=== PATIENT | female | born 1940 | race Two or more races ===

== ENCOUNTER 2016-12-31 16:12 | Inpatient (IN) | payer OTHER ==
[~2016-12-31] VITALS: Ht 152.4 cm; Wt 54.6 kg
[~2016-12-31 16:12] MED LIST: ASPI-482 PO; AZIT500T PO; BRIM5DRO3 OP; CARV3.12 PO; CHLO25TA PO; GLIM4TAB PO; LOSA50TA6 PO; METF10002 PO; METO5TAB55 PO; OMEP20CA9 PO; PANT40TA3 PO; TIMO1DRO2 OP
[2016-12-31 16:30] VITALS: BP 170/80
--- NOTE | 2016-12-31 16:50 | NUR ---
The patient, NIDIA MCCOY, 76 y/o, F admitted by SHAN BALDWIN MD, was given written information regarding hospital policies, unit procedures and contact persons. VSS, assessment complete, Valuables were checked and documented, pt pain, no complaints
[2016-12-31] MEDS ORDERED: FERR-26 PO (17:21)
[2016-12-31] MEDS ORDERED: BRIM5DRO2 OP (17:21)
[2016-12-31] MEDS ORDERED: CA/D1TAB11 PO (17:21)
[2016-12-31] MEDS ORDERED: LUTE1CAP5 PO (17:21)
[2016-12-31] MEDS ORDERED: TRAZ-90 PO (17:37)
[2016-12-31] MEDS ORDERED: PRAV40TA2 PO (17:37)
[2016-12-31 18:01] VITALS: BP 156/76
--- NOTE | 2016-12-31 18:15 | NUR ---
Dr. Ba notified that pt was admitted, orders for labs and CT head, CT abd/pelvis, Dr. Ba will reconcile pt's home meds.
[2016-12-31 19:00] LABS: BASO % 1 % (0-3); EOS # 0.1 x10^3/uL (0.0-0.7); EOS % 1 % (0-3); HEMATOCRIT 31.1 % (36.0-47.0); LYMPH # 2.8 x10^3/uL (1.0-4.8); LYMPH % 41 % (24-48); MEAN CORPUSCULAR HEMOGLOBIN 32 pg (25-35); MEAN CORPUSCULAR HGB CONC 35 g/dL (31-37); MEAN CORPUSCULAR VOLUME 90 fL (79-100); MONO # 0.7 x10^3/uL (0.0-1.1); MONO % 10 % (0-9); NEUT # 3.3 x10^3uL (1.8-7.7); NEUT % 48 % (31-73); PLATELET COUNT 304 x10^3/uL (140-400); RED BLOOD COUNT 3.45 x10^6/uL (3.50-5.40); RED CELL DISTRIBUTION WIDTH 12.7 % (11.5-14.5); WHITE BLOOD COUNT 6.9 x10^3/uL (4.0-11.0)
[2016-12-31 19:12] LABS: ALBUMIN 3.8 g/dL (3.4-5.0); CALCIUM 9.6 mg/dL (8.5-10.1); CREATININE 1.1 mg/dL (0.6-1.0); POTASSIUM 3.8 mmol/L (3.5-5.1); TOTAL BILIRUBIN 0.4 mg/dL (0.2-1.0); TOTAL PROTEIN 7.6 g/dL (6.4-8.2)
[2016-12-31] MEDS: IV NORMAL SALINE 1,000ML 1,000 ML IV SCH ×2 (19:55→20:50)
[2016-12-31] MEDS: BRIMONIDINE 0.2% OPHTH SOLUTION 5ML BOTTLE. OU SCH (20:50)
[2016-12-31] MEDS: TIMOLOL 0.5% OPHTH SOLUTION 5ML BOTTLE. OU SCH (20:50)
[2016-12-31] MEDS: PRAVASTATIN 20 MG TABLET. PO SCH (20:50)
[2016-12-31] MEDS: METOCLOPRAMIDE 5 MG TABLET PO SCH (20:50)
[2016-12-31] MEDS: traZODone 100 MG TABLET. PO SCH (20:51)
[2016-12-31] MEDS: CARVEDILOL 3.125 MG TABLET PO SCH (20:51)
[2016-12-31] MEDS: LOSARTAN 50 MG TABLET. PO SCH (20:51)
[2016-12-31] MEDS: GLIMEPIRIDE 4 MG TABLET PO SCH (20:51)
[2016-12-31] MEDS ORDERED: NON FORMULARY ITEM (Brimonidine Tartrate/Timolol (Combigan Eye Drops) 5 ML) OP SCH (21:00)
--- NOTE | 2016-12-31 21:38 | RAD ---
PROCEDURE CT HEAD HISTORY NAUSEA/VOMTING/HEADACHE
TECHNIQUE AXIAL NONCONTRAST IMAGING THROUGH THE HEAD WAS PERFORMED. COMPARISON NO PRIOR IMAGES ARE AVAILABLE FOR COMPARISON PURPOSES. FINDINGS NO ACUTE OR SIGNIFICANT CALVARIAL FINDING IS SEEN. THE VISUALIZED PARANASAL SINUSES APPEAR UNREMARKABLE. THERE IS NO SUBDURAL OR EPIDURAL HEMATOMA. THERE IS SOME UNDERLYING ATROPHY. THERE ARE LUCENCIES IN THE DEEP WHITE MATTER BILATERALLY LIKELY REFLECTING MICROVASCULAR DISEASE. NO HEMORRHAGE IS SEEN. THERE IS NO MIDLINE SHIFT. A DEFINITE ACUTE FINDING IS NOT APPARENT. THERE ARE APPARENT POSTOPERATIVE CHANGES ASSOCIATED WITH THE LEFT SIDE. CLINICAL CORRELATION ADVISED IMPRESSION CHRONIC CHANGES. NO DEFINITE ACUTE FINDINGS SEEN. THERE IS EVIDENCE FOR MICROVASCULAR DISEASE. IF ADDITIONAL IMAGING EVALUATION IS WARRANTED AN MRI EXAMINATION MAY BE USEFUL Electronically signed by: Raffaele Villagomez (December 31, 2016 21:37:15)
[2016-12-31 22:57] VITALS: BP 114/61
[2016-12-31 23:11] LABS: BILIRUBIN,URINE NEG (NEG); CLARITY,URINE CLEAR; COLOR,URINE YELLOW; GLUCOSE,URINE NEG (NEG); NITRITE,URINE NEG (NEG); UROBILINOGEN,URINE 0.2 mg/dL (0.2 mg/dL)
[2016-12-31 23:12] LABS: BACTERIA,URINE FEW /HPF (0-FEW); RBC,URINE 0 /HPF (0-2); SQUAMOUS EPITHELIAL CELL,UR FEW /LPF
[2017-01-01] MEDS ORDERED: PNEUMOCOCCAL VAX SCREEN. MC PRN (04:00)
[2017-01-01 05:06] VITALS: BP 117/61
--- NOTE | 2017-01-01 07:44 | RAD ---
Indication: Shortness of air. Time of exam 2119 hours. Correlation is made with prior chest from 03/15/2014. FINDINGS: The heart size is normal. The lungs are clear. No pleural effusion or pneumothorax is identified. The pulmonary vascularity is normal. IMPRESSION: No acute abnormality detected.
[2017-01-01] MEDS: MULTIVITAMIN I-VITE TABLET. PO SCH (08:32)
[2017-01-01] MEDS: CHLORTHALIDONE 25 MG TABLET PO SCH (08:38)
[2017-01-01] MEDS: CARVEDILOL 3.125 MG TABLET PO SCH ×2 (08:38→20:02)
[2017-01-01] MEDS: ASPIRIN ENTERIC COATED 81 MG TABLET.DR. PO SCH (08:38)
[2017-01-01] MEDS: PANTOPRAZOLE 40 MG TABLET. PO SCH (08:38)
[2017-01-01] MEDS: GLIMEPIRIDE 4 MG TABLET PO SCH ×2 (08:38→20:01)
[2017-01-01] MEDS: METOCLOPRAMIDE 5 MG TABLET PO SCH ×4 (08:38→20:02)
[2017-01-01] MEDS: LOSARTAN 50 MG TABLET. PO SCH ×2 (08:38→20:02)
[2017-01-01] MEDS: FERROUS SULFATE 325 MG TABLET PO SCH (08:38)
[2017-01-01] MEDS: BRIMONIDINE 0.2% OPHTH SOLUTION 5ML BOTTLE. OU SCH ×2 (08:39→20:01)
[2017-01-01] MEDS: TIMOLOL 0.5% OPHTH SOLUTION 5ML BOTTLE. OU SCH ×2 (08:39→20:01)
[2017-01-01] MEDS ORDERED: PNEUMOC CONJ VACC 23-VALENT 0.5 ML VIAL. VAX IM ONE (09:00)
[2017-01-01] MEDS ORDERED: IOHEXOL 300 MG/ML 75 ML VIAL. IV ONE (10:00)
[2017-01-01] MEDS ORDERED: IOHEXOL 240 MG/ML 50ML VIAL. PO ONE (10:00)
[2017-01-01] MEDS ORDERED: CONTRAST GIVEN MC PRN (10:15)
[2017-01-01 10:34] VITALS: BP 111/52
--- NOTE | 2017-01-01 12:01 | RAD ---
Exam performed: CT abdomen pelvis with contrast. History: Nausea, vomiting and diarrhea more than 2 hours. Date of service: 01/01/17. Comparison: None available Technique: Contiguous helical acquisitions are obtained through the chest reveal intravenous administration of 75 cc of Omnipaque 300. Sagittal and coronal reformatted images are obtained and reviewed. Findings: Linear left basilar atelectasis. Right lung base is clear. Visualized heart is normal. Mild hepatic steatosis. Cholecystectomy. Wall thickening of the stomach may be related to decompressed status. The spleen and pancreas appear normal. Both adrenal glands and bilateral kidneys are normal in size with symmetric excretion of contrast via both kidneys. There is no hydronephrosis or nephrolithiasis. Aorta demonstrates mild atheromatous calcification. No retroperitoneal or mesenteric lymphadenopathy. Small and large bowel loops are nondilated and unremarkable. Normal appendix. Apparent wall thickening of the medial aspect of the cecum and probably distal portion of the ileum is seen, best seen on axial image 86, series 2 and coronal image 47, series 6. Urinary bladder is partially decompressed. Hysterectomy. No adnexal masses seen. No free or focal fluid collections or pelvic lymphadenopathy seen. Postoperative changes of posterior spinal fusion involving bilateral. Impression: 1. Apparent wall thickening of the cecum and probably distal ileum. Findings may be related to enterocolitis, infectious or inflammatory etiology. Mass involving the medial wall of cecum cannot be excluded. Evaluation with colonoscopy findings may be of additional benefit. 2. Diffuse hepatic steatosis. PQRS Compliance Statement: One or more of the following individualized dose reduction techniques were utilized for this examination: 1. Automated exposure control 2. Adjustment of the mA and/or kV according to patient size 3. Use of iterative reconstruction technique
--- NOTE | 2017-01-01 12:31 | EKG ---
[address] [address] Test Date: 2017-01-01 Test Time: 10:19:34 Pat Name: NIDIA MCCOY Department: Room: 123 A Gender: F Anglesmith: : 1940 Requested By: SHAN BALDWIN Order Number: [id number] Reading MD: Maximiliano Begum Measurements Intervals [place] Rate: 67 P: 51 MN: 162 QRS: 36 QRSD: 88 T: 68 QT: 414 QTc: 440 Interpretive Statements SINUS ARRHYTHMIA Electronically Signed On 01-06-2017 9:18:00 CDT by Maximiliano Begum
[2017-01-01] MEDS: IV NORMAL SALINE 1,000ML 1,000 ML IV SCH (14:48)
[2017-01-01 14:57] LABS: BASO % 1 % (0-3); EOS % 0 % (0-3); HEMATOCRIT 28.4 % (36.0-47.0); HEMOGLOBIN 10.1 g/dL (12.0-15.5); LYMPH # 1.8 x10^3/uL (1.0-4.8); LYMPH % 31 % (24-48); MEAN CORPUSCULAR HEMOGLOBIN 32 pg (25-35); MEAN CORPUSCULAR HGB CONC 36 g/dL (31-37); MEAN CORPUSCULAR VOLUME 90 fL (79-100); MONO # 0.6 x10^3/uL (0.0-1.1); MONO % 10 % (0-9); NEUT # 3.5 x10^3uL (1.8-7.7); NEUT % 59 % (31-73); PLATELET COUNT 269 x10^3/uL (140-400); RED BLOOD COUNT 3.16 x10^6/uL (3.50-5.40); RED CELL DISTRIBUTION WIDTH 12.7 % (11.5-14.5)
[2017-01-01 16:00] LABS: BILIRUBIN,URINE NEG (NEG); CLARITY,URINE CLEAR; COLOR,URINE STRAW; GLUCOSE,URINE 100 mg/dL (NEG); NITRITE,URINE NEG (NEG); UROBILINOGEN,URINE 0.2 mg/dL (0.2 mg/dL)
[2017-01-01 16:18] LABS: RBC,URINE 0 /HPF (0-2)
[2017-01-01 16:19] LABS: BACTERIA,URINE 0 /HPF (0-FEW)
[2017-01-01 16:23] VITALS: BP 129/69
[2017-01-01] MEDS: traZODone 100 MG TABLET. PO SCH (20:02)
[2017-01-01 20:03] VITALS: BP 183/70
[2017-01-01] MEDS: PRAVASTATIN 20 MG TABLET. PO SCH (20:03)
[2017-01-01 23:20] VITALS: BP 100/58
[2017-01-02 04:13] LABS: HEMOGLOBIN A1C 5.9 % (4.8-5.6)
[2017-01-02] MEDS: IV NORMAL SALINE 1,000ML 1,000 ML IV SCH ×2 (05:05→20:27)
[2017-01-02 05:26] VITALS: BP 119/66
[2017-01-02 06:44] LABS: CALCIUM 8.8 mg/dL (8.5-10.1); CREATININE 0.7 mg/dL (0.6-1.0); GFR 80.9; POTASSIUM 3.9 mmol/L (3.5-5.1)
[2017-01-02 07:22] LABS: BASO % 1 % (0-3); EOS # 0.1 x10^3/uL (0.0-0.7); EOS % 1 % (0-3); HEMATOCRIT 27.8 % (36.0-47.0); LYMPH # 2.2 x10^3/uL (1.0-4.8); LYMPH % 39 % (24-48); MEAN CORPUSCULAR HEMOGLOBIN 32 pg (25-35); MEAN CORPUSCULAR HGB CONC 36 g/dL (31-37); MEAN CORPUSCULAR VOLUME 89 fL (79-100); MONO # 0.6 x10^3/uL (0.0-1.1); MONO % 11 % (0-9); NEUT # 2.7 x10^3uL (1.8-7.7); NEUT % 49 % (31-73); PLATELET COUNT 276 x10^3/uL (140-400); RED BLOOD COUNT 3.11 x10^6/uL (3.50-5.40); RED CELL DISTRIBUTION WIDTH 12.9 % (11.5-14.5); WHITE BLOOD COUNT 5.5 x10^3/uL (4.0-11.0)
[2017-01-02] MEDS: METOCLOPRAMIDE 5 MG TABLET PO SCH ×4 (07:52→20:27)
[2017-01-02] MEDS: LOSARTAN 50 MG TABLET. PO SCH ×2 (07:52→20:27)
[2017-01-02] MEDS: CHLORTHALIDONE 25 MG TABLET PO SCH (07:52)
[2017-01-02] MEDS: PANTOPRAZOLE 40 MG TABLET. PO SCH (07:52)
[2017-01-02] MEDS: MULTIVITAMIN I-VITE TABLET. PO SCH (07:52)
[2017-01-02] MEDS: ASPIRIN ENTERIC COATED 81 MG TABLET.DR. PO SCH (07:53)
[2017-01-02] MEDS: GLIMEPIRIDE 4 MG TABLET PO SCH ×2 (07:53→20:27)
[2017-01-02] MEDS: CARVEDILOL 3.125 MG TABLET PO SCH ×2 (07:53→20:27)
[2017-01-02] MEDS: TIMOLOL 0.5% OPHTH SOLUTION 5ML BOTTLE. OU SCH ×2 (07:53→20:26)
[2017-01-02] MEDS: FERROUS SULFATE 325 MG TABLET PO SCH (07:53)
[2017-01-02] MEDS: BRIMONIDINE 0.2% OPHTH SOLUTION 5ML BOTTLE. OU SCH ×2 (07:53→20:26)
--- NOTE | 2017-01-02 09:40 | PN ---
DATE: SUBJECTIVE: A 76-year-old female with what appears to be some form of sepsis. Her scan today showed that she had a form of enterocolitis of the ileocecal area. The patient also noted to have hepatic steatosis. She does have a history of diabetes. Her creatinine was also elevated and her lactic acid was down to 3.1, her BUN was elevated at 22, sodium was low at 129. Cardiac enzymes negative. Other scan of including CT of the head because of the headache, no acute findings noted. Chest x-ray was unremarkable. PHYSICAL EXAMINATION: VITAL SIGNS: Blood pressure 110/60, respiratory rate 20, pulse 80, afebrile. The patient's daughter translated. GENERAL: Alert and oriented. LUNGS: Diminished, but clear. CARDIOVASCULAR: Stable. The patient better dehydrated. ABDOMEN: Soft, diffuse tenderness in the lower abdominal areas, right and left. No rebounding, slight guarding. NEUROLOGIC: Intact. LABORATORY DATA: The patient otherwise continued to be monitored carefully IV fluids hydration, start her on Flexeril 500 mg b.i.d., as such she did have some diarrhea. IMPRESSION: Enterocolitis, diarrhea, dehydration, sepsis, type 2 diabetes, mild renal insufficiency. Continue therapy. PLAN: As noted, get stool specimens as well. SHAN BALDWIN MD DR: MARY/perry JOB#: [id number] / [id number]
[2017-01-02 09:47] LABS: FECAL OB PT NEGATIVE (NEG)
[2017-01-02 11:18] VITALS: BP 132/72
[2017-01-02 15:13] VITALS: BP 153/66
[2017-01-02 19:31] VITALS: BP 152/65
[2017-01-02] MEDS: traZODone 100 MG TABLET. PO SCH (20:27)
[2017-01-02] MEDS: PRAVASTATIN 20 MG TABLET. PO SCH (20:28)
[2017-01-03 05:37] VITALS: BP 137/73
[2017-01-03 08:06] LABS: BASO % 1 % (0-3); EOS % 1 % (0-3); HEMOGLOBIN 10.4 g/dL (12.0-15.5); LYMPH # 2.4 x10^3/uL (1.0-4.8); LYMPH % 34 % (24-48); MEAN CORPUSCULAR HEMOGLOBIN 33 pg (25-35); MEAN CORPUSCULAR HGB CONC 37 g/dL (31-37); MEAN CORPUSCULAR VOLUME 90 fL (79-100); MONO # 0.7 x10^3/uL (0.0-1.1); MONO % 10 % (0-9); NEUT # 3.9 x10^3uL (1.8-7.7); NEUT % 55 % (31-73); PLATELET COUNT 282 x10^3/uL (140-400); RED BLOOD COUNT 3.12 x10^6/uL (3.50-5.40); RED CELL DISTRIBUTION WIDTH 13.1 % (11.5-14.5); WHITE BLOOD COUNT 7.1 x10^3/uL (4.0-11.0)
[2017-01-03 08:13] LABS: CALCIUM 8.7 mg/dL (8.5-10.1); CREATININE 0.8 mg/dL (0.6-1.0); GFR 69.4; POTASSIUM 3.8 mmol/L (3.5-5.1)
[2017-01-03] MEDS: MULTIVITAMIN I-VITE TABLET. PO SCH (08:18)
[2017-01-03] MEDS: GLIMEPIRIDE 4 MG TABLET PO SCH (08:18)
[2017-01-03] MEDS: ASPIRIN ENTERIC COATED 81 MG TABLET.DR. PO SCH (08:18)
[2017-01-03] MEDS: TIMOLOL 0.5% OPHTH SOLUTION 5ML BOTTLE. OU SCH (08:18)
[2017-01-03] MEDS: BRIMONIDINE 0.2% OPHTH SOLUTION 5ML BOTTLE. OU SCH (08:18)
[2017-01-03] MEDS: CHLORTHALIDONE 25 MG TABLET PO SCH (08:18)
[2017-01-03] MEDS: FERROUS SULFATE 325 MG TABLET PO SCH (08:18)
[2017-01-03] MEDS: LOSARTAN 50 MG TABLET. PO SCH (08:18)
[2017-01-03] MEDS: METOCLOPRAMIDE 5 MG TABLET PO SCH ×2 (08:18→11:37)
[2017-01-03] MEDS: PANTOPRAZOLE 40 MG TABLET. PO SCH (08:19)
[2017-01-03] MEDS: CARVEDILOL 3.125 MG TABLET PO SCH (08:19)
--- NOTE | 2017-01-03 09:19 | PN ---
DATE: 01/02/2017 SUBJECTIVE: A 76-year-old female came in with abdominal pain, nausea, vomiting, weakness, failure to thrive. The patient was noted on CT scan to show colitis. She has been receiving IV metronidazole, so she is feeling better. We will go ahead and start her on advancing her diet, make further evaluation on her as indicated per those results, otherwise. PHYSICAL EXAMINATION: VITAL SIGNS: The patient's blood pressure 150/60, respiratory rate 20, pulse 70, afebrile. GENERAL: The patient is alert and oriented x 3. Speech fluent, spontaneous, and appropriate. LUNGS: Diminished, but clear. CARDIOVASCULAR: Stable. ABDOMEN: Soft. There is definite tenderness, but markedly improved from where they were. EXTREMITIES: No clubbing, cyanosis or edema. IMPRESSION: Colitis, possible Clostridium difficile. We will try to get stool specimen, stool Hemoccult negative. Continue on IV metronidazole, advance diet gradually, she will end up having to see a primer inserting machine operator. SHAN BALDWIN MD DR: MARY/perry JOB#: [id number] / [id number]
[2017-01-03] MEDS ORDERED: METR500T8 PO (09:56)
[2017-01-03 10:26] VITALS: BP 126/64
--- NOTE | 2017-01-03 15:35 | NUR ---
Discharge Note: TITO MCCOY [facility] Discharge instructions and discharge home medications reviewed with Family Member and a copy given. All questions have been answered and understanding verbalized. The following instructions and handouts were given: education about Flagyl and colitis, discharge instructions Discontinued lines and drains: PICC Line intact. Patient discharged to Home or Self Care withFamily Membervia Ambulated
== END 2017-01-03 15:36 | disposition home or self-care (01) | DRG 872 ==
LOC: 1 SOUTH 16:12
PROVIDERS: ADMIT Family Medicine; ATTEND Family Medicine
DX: A41.9 Sepsis, unspecified organism (principal); E11.9 Type 2 diabetes mellitus without complications; E86.0 Dehydration; K52.9 Noninfective gastroenteritis and colitis, unspecified; K76.0 Fatty (change of) liver, not elsewhere classified; N28.9 Disorder of kidney and ureter, unspecified; R62.7 Adult failure to thrive; R55 Syncope and collapse; Z88.8 Allergy status to other drugs, medicaments and biological substances
CPT/HCPCS: 36415; 70450; 71020; 74177; 80048; 80053; 81001; 82274; 82550; 82947; 83036; 83605; 83880; 84443; 84484; 85027; 85379; 87045; 87086; 87177; 87324; 93005; J3490; J8597; J7030

== ENCOUNTER → 2017-06-19 | Day surgery (SDC) | payer OTHER ==
[~2017-06-19] MED LIST changes: +BRIM5DRO2 OP; +CA/D1TAB11 PO; +FERR-26 PO; +IV RINGERS SOLUTION,LACTATED 1,000 ML IV ONE; +LIDOCAINE 2% PF Vial for OR 5 ML VIAL. ONE; +LUTE1CAP5 PO; +METR500T8 PO; +PRAV40TA2 PO; +PROPOFOL 20 ML IV ONE; +TRAZ-90 PO
== END | disposition home or self-care (01) ==
LOC: SURG 07:28
PROVIDERS: ATTEND Internal Medicine Gastroenterology
DX: K57.30 Diverticulosis of large intestine without perforation or abscess without bleeding (principal); K64.8 Other hemorrhoids; E78.00 Pure hypercholesterolemia, unspecified; H40.9 Unspecified glaucoma; M19.91 Primary osteoarthritis, unspecified site; Z90.710 Acquired absence of both cervix and uterus; Z88.8 Allergy status to other drugs, medicaments and biological substances
CPT/HCPCS: 45378; 82947; J2704; J7120; J2001

== ENCOUNTER → 2018-07-28 | Outpatient (CLI) | payer OTHER ==
[~2018-07-28] MED LIST changes: -FERR-26 PO; +FERR325T14 PO; +IOHEXOL 240 MG/ML 50ML VIAL. ONE; +IOHEXOL 240 MG/ML 50ML VIAL. PO ONE; +IOHEXOL 300 MG/ML 75 ML VIAL. IV ONE; -IV RINGERS SOLUTION,LACTATED 1,000 ML IV ONE; -LIDOCAINE 2% PF Vial for OR 5 ML VIAL. ONE; -LOSA50TA6 PO; +LOSA50TA86 PO; -METF10002 PO; +METF10007 PO; +METR-84 PO; -METR500T8 PO; -PROPOFOL 20 ML IV ONE; +TRAZ-86 PO; -TRAZ-90 PO
--- NOTE | 2018-07-28 14:24 | RAD ---
CT abdomen and pelvis with contrast 07/28/2018 Clinical indications: Cecal mass not visualized during recent colonoscopy, weight loss. COMPARISON: CT abdomen and pelvis 01/01/2017. TECHNIQUE: Multiple CT images of the abdomen and pelvis were obtained following the intravenous administration of 70 mL Omnipaque 300. Oral contrast was administered. *One or more of the following individualized dose reduction techniques were utilized for this examination: 1. Automated exposure control. 2. Adjustment of the mA and/or kV according to patient size. 3. Use of iterative reconstruction technique. FINDINGS: Heart size is normal. Mildly prominent right hilar lymph node measuring 0.7 cm short axis series 2/image 3, likely reactive. Liver, spleen, adrenal glands and pancreas are unremarkable. There is mild extrahepatic biliary ductal dilatation is likely due to reservoir effect from prior cholecystectomy. Both kidneys present without hydronephrosis. Abdominal aorta normal in caliber with moderate aortoiliac calcified plaque. Nature portal veins are patent. No retroperitoneal or mesenteric lymphadenopathy. Small and large bowel loops are normal in caliber without obstruction. Appendix is unremarkable. Positive oral contrast reaches the cecum. There is no evidence of suspicious cecal mass. No pericecal stranding. Mildly distended unopacified urinary bladder unremarkable. Hysterectomy with the vaginal cuff unremarkable. No iliac or inguinal lymphadenopathy. Posterior spinal fixation L4-L5 with bilateral vertical rods and transpedicular screws. Moderate segmental spondylosis at L3-L4 and mild to moderate at L5-S1. IMPRESSION: Contrast reaches the cecum without evidence of abdominopelvic mass or lymphadenopathy. Electronically signed by: Nato Dash MD (07/28/2018 2:20 PM) [id number]
== END | disposition home or self-care (01) ==
LOC: CT 08:44
PROVIDERS: ATTEND Family Medicine
DX: M47.896 Other spondylosis, lumbar region (principal); M47.897 Other spondylosis, lumbosacral region; I10 Essential (primary) hypertension; E11.9 Type 2 diabetes mellitus without complications; Z79.01 Long term (current) use of anticoagulants; Z90.49 Acquired absence of other specified parts of digestive tract
CPT/HCPCS: 74177; Q9966; Q9967

== ENCOUNTER 2020-08-28 17:47 | Inpatient (IN) | payer OTHER ==
[~2020-08-28] VITALS: Ht 152.4 cm; Wt 55.6 kg
[~2020-08-28 17:47] MED LIST changes: -CHLO25TA PO; +CHLO25TA9 PO; -IOHEXOL 240 MG/ML 50ML VIAL. ONE; -IOHEXOL 240 MG/ML 50ML VIAL. PO ONE; -IOHEXOL 300 MG/ML 75 ML VIAL. IV ONE; +METR-34 PO; -METR-84 PO; +OMEP20CA16 PO; -OMEP20CA9 PO; +TRAZ-125 PO; -TRAZ-86 PO
--- NOTE | 2020-08-28 18:21 | PHYS DOC ---
Past History Past Medical History: Anxiety, Arthritis, Diabetes, GERD, High Cholesterol, Heart Disease, Hypertension Past Medical History COVID +, LATE 2019 Past Surgical History: Cholecystectomy, Hysterectomy Smoking: Non-smoker Alcohol Use: None Drug Use: None General Adult EDM: Chief Complaint: BLOOD SUGAR PROBLEM HPI: HPI: ".. dolar.. espaldia. sulfriminento... tosiendo.. mucho tosiendo...disnea... " ( Hx Lt persistent lower back and hip pain- since end july) Patient is a 80 year old female who presents with above hx and complaints of Covid exposure and diagnosis in late July.. Since that time has developed left low back pain and left hip pain which seems to have a sciatic component. Pt. pain is an exacerbation over her chronic low back pain. Patient also has had elevated glucose levels at home has not responded to her normal medicine regimen and out pt. tx regimens for elevated glucose.. Patient normally follows Dr. Baldwin. No recent travel outside [place] area. Has known history of hypertension and diabetes. Review of Systems: Review of Systems: Constitutional: History of fever or chills Eyes: Denies change in visual acuity HENT: Denies nasal congestion or sore throat Respiratory: Hx of cough and shortness of breath Cardiovascular: Denies chest pain or edema GI: Denies abdominal pain, nausea, vomiting, bloody stools or diarrhea : Denies dysuria Musculoskeletal: Complaints of low back pain Lt. hip joint pain Integument: Denies rash Neurologic: Denies headache, focal weakness or sensory changes Endocrine: Denies polyuria or polydipsia Lymphatic: Denies swollen glands Psychiatric: Denies depression or anxiety Family History: Family History: Daughter has COVID Current Medications: Current Meds: See Nursing for home meds. Allergies: Allergies: Allergies Uncoded Allergies Type Severity Reaction Last Updated Verified Lisinoprol Adverse Reaction Intermediate swelling 12/31/16 Physical Exam: PE: Constitutional: Moderate acute distress, non-toxic appearance. [] HENT: Normocephalic, atraumatic, bilateral external ears normal, oropharynx moist, no oral exudates, nose swollen turbinates and clear rhinorrhea Eyes: PERRLA, EOMI, conjunctiva normal, no discharge. [] Neck: Normal range of motion, no tenderness, supple, no stridor. [] Cardiovascular: Tachycardia heart rate regular rhythm, no murmur, PMI to left Lungs & Thorax: Bilateral breath sounds equal apex with scattered wheezing throughout and basilar crackles on auscultation [] Abdomen: Bowel sounds normal, soft, no tenderness, no masses, no pulsatile mas ses. Old surgery scars. Skin: Warm, dry, no erythema, no rash. Poor turgor. Back: Lumbar sacral tenderness, old scar. Pain seems to follow left sciatic nerve into left hip. No CVA tenderness. [] Extremities: No tenderness, no cyanosis, no clubbing, ROM intact, no edema. Arthritic changes. No cording appreciated in legs Neurologic: Alert and oriented X 3, moves all ext. on request, distal sensory, no focal deficits noted. [] Psychologic: Affect anxious, judgement normal, mood normal. [] EKG: EKG: My interpretation EKG shows a sinus tachycardia 104 bpm. There are no findings of acute STEMI with contralateral changes. There is baseline artifact. [] Radiology/Procedures: Radiology/Procedures: [][place] [address] IMAGING REPORT Signed PATIENT: NIDIA MCCOYACCOUNT: [id number] : 1940 LOCATION: ER AGE: 80 SEX: F EXAM STATUS: REG ER ORD. PHYSICIAN: MABEL LUNA MD REASON: dyspnea PROCEDURE: PORTABLE CHEST 1V XR CHEST 1V INDICATION: Reason: dyspnea / Spl. Instructions: / History: . COMPARISON STUDY: 12/31/2016. FINDINGS: Lungs: Normal lung volume. Patchy bilateral heterogeneous opacities. The tracheobronchial tree and hilar structures are normal. Pleura: No pleural effusion or pneumothorax. Heart and Mediastinum: The cardiomediastinal silhouette is normal. The great vessels of the thorax are normal. IMPRESSION: Patchy bilateral opacities, likely multifocal infection or edema. Electronically signed by: Brianda Rogers MD (08/28/2020 7:05 PM) [facility] DICTATED AND SIGNED BY: BRIANDA ROGERS MD DATE: 08/28/20 190 CC: SHAN BALDWIN MD; MABEL LUNA MD ~MTH0 0 Heart Score: HEART Score for Chest Pain: HEART Score for Chest Pain Response (Comments) Value History Slighlty/Non-Suspicious 0 ECG Nonspecific Repolarizatio 1 Age > 65 2 Risk Factors 1 or 2 Risk Factors 1 Troponin < Normal Limit 0 Total 4 Risk Factors: Risk Factors: DM, Current or recent (<one month) smoker, HTN, HLP, family history of CAD, obesity. Risk Scores: Score 0 - 3: 2.5% MACE over next 6 weeks - Discharge Home Score 4 - 6: 20.3% MACE over next 6 weeks - Admit for Clinical Observation Score 7 - 10: 72.7% MACE over next 6 weeks - Early Invasive Strategies Course & Med Decision Making: Course & Med Decision Making Pertinent Labs and Imaging studies reviewed. (See chart for details) Discussed presentation, testing and treatment plan with Dr. Baldwin. Plan admit for further eval. and tx. Will cover for bacterial pneumonia, but suspect this is exacerbation of Viral Pneumonia- COVID. Impression: 1. Hx + Positive COVID test 2. Atypical Pneumonia 3. DM - Glucose 251 4. Leukocytosis 11.3 5. Anemia 10.8 hemoglobin 6. Hyponatremia 126 7. CHF diastolic dysfunction - BNP 1228 8. Hypo Magnesium 1.7 9. Exacerbation of Chronic Low back pain aqnd Hip pain 10. Accelerated HTN 11. Elevated Lactic Acid 4.7 [] Dragon Disclaimer: Dragon Disclaimer: This electronic medical record was generated, in whole or in part, using a voice recognition dictation system. Departure Departure: Referrals: SHAN BALDWIN MD (PCP) Dragon Disclaimer This chart was dictated in whole or in part using Voice Recognition software in a busy, high-work load, and often noisy Emergency Department environment. It may contain unintended and wholly unrecognized errors or omissions. Dragon Disclaimer This chart was dictated in whole or in part using Voice Recognition software in a busy, high-work load, and often noisy Emergency Department environment. It may contain unintended and wholly unrecognized errors or omissions. Dragon Disclaimer This chart was dictated in whole or in part using Voice Recognition software in a busy, high-work load, and often noisy Emergency Department environment. It may contain unintended and wholly unrecognized errors or omissions. MABEL LUNA MD Aug 28, 2020 18:21
[2020-08-28] MEDS ORDERED: IV NORMAL SALINE 1,000ML 1,000 ML IV SCH (18:30)
[2020-08-28] MEDS ORDERED: MORPHINE SULFATE 4 MG/ML DISP.SYRIN. IM ONE (18:45)
[2020-08-28 18:49] LABS: BASO % 0 % (0-3); EOS % 0 % (0-3); HEMOGLOBIN 10.8 g/dL (12.0-15.5); LYMPH # 0.7 x10^3/uL (1.0-4.8); LYMPH % 6 % (24-48); MEAN CORPUSCULAR HEMOGLOBIN 31 pg (25-35); MEAN CORPUSCULAR HGB CONC 34 g/dL (31-37); MEAN CORPUSCULAR VOLUME 92 fL (79-100); MONO # 0.3 x10^3/uL (0.0-1.1); MONO % 3 % (0-9); NEUT # 10.3 x10^3uL (1.8-7.7); NEUT % 91 % (31-73); PLATELET COUNT 421 x10^3/uL (140-400); RED BLOOD COUNT 3.47 x10^6/uL (3.50-5.40); RED CELL DISTRIBUTION WIDTH 13.1 % (11.5-14.5); WHITE BLOOD COUNT 11.3 x10^3/uL (4.0-11.0)
[2020-08-28 18:57] LABS: CALCIUM 9.1 mg/dL (8.5-10.1); GFR 53.1; POTASSIUM 4.2 mmol/L (3.5-5.1)
[2020-08-28 19:07] LABS: ALBUMIN 2.9 g/dL (3.4-5.0); DIRECT BILIRUBIN 0.1 mg/dL (0.0-0.2); MAGNESIUM 1.7 mg/dL (1.8-2.4); TOTAL BILIRUBIN 0.2 mg/dL (0.2-1.0); TOTAL PROTEIN 7.1 g/dL (6.4-8.2)
--- NOTE | 2020-08-28 19:07 | RAD ---
XR CHEST 1V INDICATION: Reason: dyspnea / Spl. Instructions: / History: . COMPARISON STUDY: 12/31/2016. FINDINGS: Lungs: Normal lung volume. Patchy bilateral heterogeneous opacities. The tracheobronchial tree and hi lar structures are normal. Pleura: No pleural effusion or pneumothorax. Heart and Mediastinum: The cardiomediastinal silhouette is normal. The great vessels of the thorax ar e normal. IMPRESSION: Patchy bilateral opacities, likely multifocal infection or edema. Electronically signed by: Christopher Rogers MD (08/28/2020 7:05 PM) [facility]IT[facility]
[2020-08-28 19:45] LABS: BARBITURATES NEG (NEG); BENZODIAZEPINES NEG (NEG); CANNABINOIDS NEG (NEG); COCAINE NEG (NEG); METHADONE NEG (NEG); OPIATES NEG (NEG); PHENCYCLIDINE NEG (NEG)
[2020-08-28] MEDS ORDERED: AZITHROMYCIN 250 MG TABLET. PO ONE (19:45)
[2020-08-28] MEDS ORDERED: ONDANSETRON PF 4 MG/2 ML VIAL. IVP PRN (19:45)
[2020-08-28] MEDS ORDERED: FUROSEMIDE 40 MG/4 ML VIAL IVP ONE (19:45)
[2020-08-28] MEDS ORDERED: MAGNESIUM SULFATE 2GM 50 ML IV ONE (19:45)
[2020-08-28] MEDS ORDERED: IV NORMAL SALINE 1,000ML 1,000 ML IV ONE (19:45)
[2020-08-28] MEDS ORDERED: ACETAMINOPHEN 325 MG TABLET PO PRN (19:45)
[2020-08-28] MEDS ORDERED: SODIUM BICARB ADULT 8.4% 50 MEQ/50 ML DISP.SYRIN. IV ONE (19:45)
[2020-08-28 19:50] LABS: AMPHETAMINE/METHAMPHETAMINE NEG (NEG)
[2020-08-28 19:57] LABS: BACTERIA,URINE 0 /HPF (0-FEW); BILIRUBIN,URINE NEG (NEG); CLARITY,URINE CLEAR; COLOR,URINE YELLOW; GLUCOSE,URINE >=1000 mg/dL (NEG); NITRITE,URINE NEG (NEG); SQUAMOUS EPITHELIAL CELL,UR FEW /LPF; UROBILINOGEN,URINE 0.2 mg/dL (0.2 mg/dL)
--- NOTE | 2020-08-28 20:20 | RAD ---
CT of the pelvis and CT lumbosacral spine without contrast HISTORY: Pain status post injury CT pelvis without contrast: Axial helical images of the pelvis obtained without contrast and axial coronal and sagittal reconstru ction was performed. There is beam Valderrama artifact due to hardware from prior fusion of L2-S1 with bilateral pedicle scre ws and posterior fusion rods. There is no free fluid. The urinary bladder appears normal. The visualized osseous structures appear grossly intact. IMPRESSION: No acute findings. End impression CT lumbar spine without contrast History: Back pain Axial helical images of the lumbar spine were obtained without contrast. Axial, coronal and sagittal reconstruction was performed. Findings: The vertebral bodies are aligned. There is no loss of vertebral body stature. Evaluation of the central canal is limited without contrast. There is beam Valderrama artifact from prio r surgery. Diffuse circumferential disc bulge and hypertrophy assessment flavum results in mild to mo derate central stenosis at multiple levels. There is mild narrowing of multiple neuroforamen below th e level exiting nerve roots. Impression: No acute findings. PQRS Compliance Statement: One or more of the following individualized dose reduction techniques were utilized for this examinat ion: 1. Automated exposure control 2. Adjustment of the mA and/or kV according to patient size 3. Use of iterative reconstruction technique Electronically signed by: Sidney Barrett III, MD (08/28/2020 8:18 PM) [facility]
[2020-08-28] MEDS ORDERED: cefTRIAXone SODIUM 1 GM VIAL ONE (20:33)
[2020-08-28] MEDS ORDERED: IV NORMAL SALINE 50ML 50 ML ONE (20:33)
[2020-08-28] MEDS: APIXABAN 2.5 MG TABLET PO SCH (22:00)
[2020-08-28 22:47] VITALS: BP 176/61
[2020-08-28] MEDS ORDERED: ALEN70TA71 PO (23:57)
[2020-08-28] MEDS ORDERED: CARV6.2541 PO (23:57)
[2020-08-28] MEDS ORDERED: DULA0.75 SQ (23:57)
[2020-08-28] MEDS ORDERED: LOSA50TA86 PO (23:57)
[2020-08-28] MEDS ORDERED: TRAM50TA PO (23:57)
[2020-08-28] MEDS ORDERED: INSU200I SQ (23:57)
[2020-08-28] MEDS ORDERED: MULT-245 PO (23:57)
[2020-08-28] MEDS ORDERED: MAGN400C PO (23:57)
[2020-08-28] MEDS ORDERED: METF-658 PO (23:57)
[2020-08-29] MEDS: IV RINGERS SOLUTION,LACTATED 1,000 ML IV SCH ×6 (00:15→20:45)
--- NOTE | 2020-08-29 02:59 | EKG ---
[address] [address] Test Date: 2020-08-28 Test Time: 18:32:50 Pat Name: NIDIA MCCOY Department: Room: 124 A Gender: F Street Department Dispatcher: : 1940 Requested By: MABEL LUNA Order Number: [id number] Reading MD: Pito Hernández Measurements Intervals [place] Rate: 104 P: 20 HI: 142 QRS: 34 QRSD: 90 T: 49 QT: 320 QTc: 421 Interpretive Statements SINUS TACHYCARDIA Electronically Signed On 08-29-2020 13:38:38 COIL MACHINE SUPERVISOR by Pito Hernández
[2020-08-29 05:49] VITALS: BP 122/55
[2020-08-29] MEDS: ALBUTEROL SULFATE 8GM INHALER. INH SCH ×4 (06:00→17:29)
--- NOTE | 2020-08-29 06:05 | NUR ---
The patient, NIDIA MCCOY, 80 y/o, F admitted by SHAN BALDWIN MD, was given written information regarding hospital policies, unit procedures and contact persons. Valuables were checked and vitals obtained. Pt does not speak any serbian. Pt shows no signs of pain or being short of air. will continue to monitor.
[2020-08-29 06:57] LABS: CALCIUM 8.5 mg/dL (8.5-10.1); CREATININE 0.8 mg/dL (0.6-1.0); GFR 68.7; POTASSIUM 3.1 mmol/L (3.5-5.1)
[2020-08-29 07:19] LABS: BASO % 0 % (0-3); EOS % 0 % (0-3); HEMATOCRIT 26.8 % (36.0-47.0); HEMOGLOBIN 9.3 g/dL (12.0-15.5); LYMPH # 1.2 x10^3/uL (1.0-4.8); LYMPH % 12 % (24-48); MEAN CORPUSCULAR HEMOGLOBIN 31 pg (25-35); MEAN CORPUSCULAR HGB CONC 35 g/dL (31-37); MEAN CORPUSCULAR VOLUME 90 fL (79-100); MONO # 0.3 x10^3/uL (0.0-1.1); MONO % 4 % (0-9); NEUT # 8.2 x10^3uL (1.8-7.7); NEUT % 84 % (31-73); PLATELET COUNT 334 x10^3/uL (140-400); RED BLOOD COUNT 2.96 x10^6/uL (3.50-5.40); RED CELL DISTRIBUTION WIDTH 12.9 % (11.5-14.5); WHITE BLOOD COUNT 9.8 x10^3/uL (4.0-11.0)
[2020-08-29] MEDS ORDERED: PIP/TAZO PER PHARMACY MC PRN (07:30)
[2020-08-29] MEDS ORDERED: traMADol 50 MG TABLET PO PRN (07:30)
[2020-08-29] MEDS ORDERED: levoFLOXacin PER PHARMACY 1 EACH. MC PRN (07:30)
[2020-08-29] MEDS: ASPIRIN ENTERIC COATED 81 MG TABLET.DR. PO SCH (07:44)
[2020-08-29] MEDS ORDERED: ENOXAPARIN 40 MG/0.4 ML SYRINGE. SQ SCH (07:45)
[2020-08-29] MEDS ORDERED: CARVEDILOL 6.25 MG TABLET PO SCH (08:00)
[2020-08-29] MEDS ORDERED: NON FORMULARY ITEM (Insulin Lispro (Humalog Kwikpen) 200 UNIT) SQ SCH (08:00)
[2020-08-29 08:06] LABS: % ATYL 2 % (0-0); % BANDS 1 % (0-9); % LYMPHS 15 % (24-48); % MONOS 3 % (0-10); % SEGS 79 % (35-66)
[2020-08-29 08:07] LABS: PLT ESTIMATE INCREASED (ADEQUATE)
[2020-08-29 08:08] LABS: TOXIC GRANULATION PRESENT
[2020-08-29] MEDS ORDERED: METOPROLOL TARTRATE 5 MG/5 ML VIAL. IV ONE (08:15)
[2020-08-29] MEDS ORDERED: POTASSIUM CHLORIDE 20 MEQ TABLET.ER. PO ONE (08:45)
--- NOTE | 2020-08-29 08:47 | PDOC2 ---
CARDIAC CONSULT DATE OF CONSULT DOS: DATE: 08/29/20 TIME: 08:31 REASON FOR CONSULT Reason for Consult AFIB with RVR REFERRING PHYSICIAN Referring Physician Dr. Ba SOURCE Source: Chart review, Patient HPI History of Present Illness This is an 80 yo female who presented with lower hip and back pain. Was exposed to COVID in July. Tested positive 08/20/20. Pelvis and lumbar spine CT without any acute findings. Was noted in AFIB with RVR, which prompted this consult. Denies any chest pain, palpitations, dizziness, or diaphoresis. No known history of AFIB. Was started on Eliquis for stroke prevention in [place]. PAST MEDICAL HISTORY Cardiovascular: HTN, hyperipidemia GI: GERD Musculoskeletal: Osteoarthritis Endocrine: Diabetes PAST SURGICAL HISTORY Past Surgical History: Cholecystectomy, Hysterectomy, Other (back surgery ) FAMILY HISTORY Family History: Other (noncontributory ) SOCIAL HISTORY Smoke: No ALCOHOL: none Drugs: None Lives: with Family CURRENT MEDICATIONS Current Medications Current Medications Sodium Chloride 1,000 ml @ 1,000 mls/hr Q1H IV Last administered on 08/28/20at 18:48; Start 08/28/20 at 18:30; Stop 08/28/20 at 19:29; Status DC Morphine Sulfate (Morphine 4mg Syringe) 4 mg 1X ONCE IM Last administered on 08/28/20at 18:50; Start 08/28/20 at 18:45; Stop 08/28/20 at 18:52; Status DC Furosemide (Lasix) 40 mg 1X ONCE IVP Last administered on 08/28/20at 20:57; Start 08/28/20 at 19:45; Stop 08/28/20 at 19:59; Status DC Sodium Chloride 1,000 ml @ 1,000 mls/hr 1X ONCE IV Last administered on 08/28/20at 19:45; Start 08/28/20 at 19:45; Stop 08/28/20 at 20:44; Status DC Apixaban (Eliquis) 2.5 mg BID PO Last administered on 08/28/20at 22:00; Start 08/28/20 at 22:00 Azithromycin (Zithromax) 500 mg 1X ONCE PO Last administered on 08/28/20at 20:52; Start 08/28/20 at 19:45; Stop 08/28/20 at 19:58; Status DC Ceftriaxone Sodium 1 gm/ Sodium Chloride 50 ml @ 100 mls/hr 1X ONCE IV Last administered on 08/28/20at 20:55; Start 08/28/20 at 19:45; Stop 08/28/20 at 20:14; Status DC Sodium Bicarbonate (Sodium Bicarb Adult 8.4% Syr) 50 meq 1X ONCE IV Last administered on 08/28/20at 20:59; Start 08/28/20 at 19:45; Stop 08/28/20 at 19:58; Status DC Ondansetron HCl (Zofran) 4 mg PRN Q4HRS PRN IVP NAUSEA/VOMITING; Start 08/28/20 at 19:45; Stop 08/29/20 at 19:44 Acetaminophen (Tylenol) 650 mg PRN Q4HRS PRN PO FEVER > 100.3'F Last administered on 08/29/20at 01:19; Start 08/28/20 at 19:45; Stop 08/29/20 at 19:44 Lactated Ringer's 1,000 ml @ 160 mls/hr Q6H15M IV Last administered on 08/29/20at 01:38; Start 08/28/20 at 19:45 Albuterol Sulfate (Ventolin Hfa Inhaler) 2 puff Q6HRS INH Last administered on 08/29/20at 06:00; Start 08/29/20 at 00:00 Ceftriaxone Sodium 1 gm/ Sodium Chloride 50 ml @ 100 mls/hr 1X IV ; Start 08/28/20 at 19:45; Status UNV Azithromycin (Zithromax) 250 mg DAILY PO ; Start 08/29/20 at 09:00 Magnesium Sulfate 50 ml @ 25 mls/hr 1X ONCE IV Last administered on 08/28/20at 19:45; Start 08/28/20 at 19:45; Stop 08/28/20 at 21:44; Status DC Sodium Chloride 50 ml @ As Directed STK-MED ONCE .ROUTE ; Start 08/28/20 at 20:33; Stop 08/28/20 at 20:33; Status DC Ceftriaxone Sodium (Rocephin) 1 gm STK-MED ONCE .ROUTE ; Start 08/28/20 at 20:33; Stop 08/28/20 at 20:33; Status DC Aspirin (Aspirin Enteric Coated) 81 mg DAILY PO Last administered on 08/29/20at 07:44; Start 08/29/20 at 09:00 Carvedilol (Coreg) 6.25 mg BIDWMEALS PO Last administered on 08/29/20at 07:44; Start 08/29/20 at 08:00 Carvedilol (Coreg) 3.125 mg BID PO ; Start 08/29/20 at 09:00; Status UNV Losartan Potassium (Cozaar) 50 mg BID PO Last administered on 08/29/20at 07:44; Start 08/29/20 at 09:00 Losartan Potassium (Cozaar) 50 mg BID PO ; Start 08/29/20 at 09:00; Stop 08/29/20 at 07:35; Status DC Metoclopramide HCl (Reglan) 5 mg TIDPCHC PO ; Start 08/29/20 at 09:00; Status UNV Pantoprazole Sodium (Protonix) 40 mg DAILY PO ; Start 08/29/20 at 09:00; Status UNV Tramadol HCl (Ultram) 50 mg PRN Q6HRS PRN PO PAIN; Start 08/29/20 at 07:30; Status UNV Trazodone HCl (Desyrel) 100 mg QHS PO ; Start 08/29/20 at 21:00; Status UNV Non-Formulary Medication (Brimonidine Tartrate/Timolol (Combigan Eye Drops)) 5 ml BID OP ; Start 08/29/20 at 09:00; Status UNV Non-Formulary Medication (Ca/D3/Mag/Zinc/ [place]/Lbu/Mgbor (Caltrate 600+D3+Min Chew Tab)) 1 each DAILY PO ; Start 08/29/20 at 09:00; Status UNV Non-Formulary Medication (Glimepiride (Amaryl)) 4 mg BID PO ; Start 08/29/20 at 09:00; Status UNV Non-Formulary Medication (Insulin Lispro (Humalog Kwikpen)) 200 unit TIDWMEALS SQ ; Start 08/29/20 at 08:00; Status UNV Non-Formulary Medication (Lutein/ Zeaxanthin (Ocuvite Lutein 25-5 mg Softgel)) 1 each DAILY PO ; Start 08/29/20 at 09:00; Status UNV Non-Formulary Medication (Magnesium Oxide (Magnesium)) 1 cap DAILY PO ; Start 08/29/20 at 09:00; Status UNV Non-Formulary Medication (Pravastatin Sodium ) 1 tab QHS PO ; Start 08/29/20 at 21:00; Status UNV Azithromycin (Zithromax) 250 mg DAILY PO ; Start 08/29/20 at 09:00; Status UNV Piperacillin Sod/ Tazobactam Sod (Zosyn Per Pharmacy) 1 each PRN DAILY PRN MC SEE COMMENTS; Start 08/29/20 at 07:30; Status UNV Levofloxacin/ Dextrose (Levaquin Per Pharmacy) 1 each PRN DAILY PRN MC SEE COMMENTS; Start 08/29/20 at 07:30; Status UNV Enoxaparin Sodium (Lovenox 40mg Syringe) 40 mg Q24H SQ ; Start 08/29/20 at 07:45 Metoprolol Tartrate (Lopressor Vial) 5 mg 1X ONCE IV ; Start 08/29/20 at 08:15; Stop 08/29/20 at 08:16; Status DC Active Scripts Active Metronidazole 500 Mg Tablet 1 Tab PO BID 14 Days Reported Multi Vitamin Daily (Multivitamin) 1 Each Tablet 1 Tab PO DAILY 30 Days Magnesium (Magnesium Oxide) 400 Mg Capsule 1 Cap PO DAILY 30 Days Tramadol Hcl (Tramadol HCl) 50 Mg Tablet 50 Mg PO PRN Q6HRS PRN Humalog Kwikpen (Insulin Lispro) 200 Unit/1 Ml Insuln.pen 200 Unit SQ TIDWMEALS Cozaar (Losartan Potassium) 50 Mg Tablet 50 Mg PO BID Carvedilol (Carvedilol) 6.25 Mg Tablet 6.25 Mg PO BIDWMEALS Metformin Hcl Er (Metformin Hcl) 500 Mg Tab.er.24h 1 Tab PO TID Alendronate Sodium 70 Mg Tablet 1 Tab PO WEEKLY Trulicity (Dulaglutide) 0.75 Mg/0.5 Ml Pen.injctr 0.75 Mg SQ WEEKLY Pravastatin Sodium 40 Mg Tablet 1 Tab PO QHS Trazodone Hcl 100 Mg Tablet 1 Tab PO QHS Ferrous Sulfate 325 Mg Tablet 1 Tab PO DAILY Ocuvite Lutein 25-5 mg Softgel (Lutein/Zeaxanthin) 1 Each Capsule 1 Each PO DAILY Caltrate 600+D3+Min Chew Tab (Ca/D3/Mag/Zinc/Jarocho/Blu/Mgbor) 1 Each Tab.chew 1 Each PO DAILY Combigan Eye Drops (Brimonidine Tartrate/Timolol) 5 Ml Drops 5 Ml OP BID Protonix (Pantoprazole Sodium) 40 Mg Tablet. 40 Mg PO DAILY LAST DOSE; TODAY AT 9 AM NEXT DOSE; TOMORROW AT 6 AM Reglan (Metoclopramide Hcl) 5 Mg Tablet 5 Mg PO TIDPCHC LAST DOSE; TODAY AT 8 AM NEXT DOSE; TODAY AT 12 NOON Chlorthalidone (Chlorthalidone) 25 Mg Tablet 25 Mg PO DAILY Amaryl (Glimepiride) 4 Mg Tablet 4 Mg PO BID LAST DOSE; TODAY AT 8 AM NEXT DOSE; TODAY AT 5 PM Losartan Potassium (Losartan Potassium) 50 Mg Tablet 50 Mg PO BID LAST DOSE; TODAY AT 9 AM NEXT DOSE; TODAY AT 9 PM Coreg (Carvedilol) 3.125 Mg Tablet 3.125 Mg PO BID LAST DOSE; TODAY AT 8 AM NEXT DOSE; TODAY AT 5 PM Metformin Hcl 1,000 Mg Tablet 1,000 Mg PO BIDACLD LAST DOSE; YESTERDAY AT 5 PM NEXT DOSE; TODAY AT 12 NOON Aspir 81 (Aspirin) 81 Mg Tablet. 81 Mg PO DA LAST DOSE; TODAY AT 9 AM NEXT DOSE; TOMORROW AT 9 AM ALLERGIES Allergies: Coded Allergies: lisinopril (Verified Adverse Reaction, Intermediate, Swelling, 08/28/20) ROS Review of Systems 14 point ROS conducted with pertinent positives noted above in hPI PHYSICAL EXAM General: Alert, Oriented X3, Cooperative, No acute distress HEENT: Atraumatic Lungs: Other (on RA) Heart: Other (IRRR; tele AFIB with RVR) Abdomen: Soft Extremities: No edema, Normal pulses Skin: No breakdown Neuro: Normal speech, Sensation intact Psych/Mental Status: Mental status NL, Mood NL MUSCULOSKELETAL: Osteoarthritic changes both hands VITALS Vital Signs Vital Signs Date Time Temp Pulse Resp B/P (MAP) Pulse Ox O2 Delivery O2 Flow Rate FiO2 08/29/20 07:44 91 122/55 08/29/20 05:49 98.8 18 93 Room Air LABS LABS Laboratory Tests Test 08/28/20 18:12 08/28/20 18:30 08/28/20 18:40 08/28/20 22:31 Glucose (Fingerstick) 313 mg/dL (70-99) 226 mg/dL (70-99) White Blood Count 11.3 x10^3/uL (4.0-11.0) Red Blood Count 3.47 x10^6/uL (3.50-5.40) Hemoglobin 10.8 g/dL (12.0-15.5) Hematocrit 32.0 % (36.0-47.0) Mean Corpuscular Volume 92 fL (79-100) Mean Corpuscular Hemoglobin 31 pg (25-35) Mean Corpuscular Hemoglobin Concent 34 g/dL (31-37) Red Cell Distribution Width 13.1 % (11.5-14.5) Platelet Count 421 x10^3/uL (140-400) Neutrophils (%) (Auto) 91 % (31-73) Lymphocytes (%) (Auto) 6 % (24-48) Monocytes (%) (Auto) 3 % (0-9) Eosinophils (%) (Auto) 0 % (0-3) Basophils (%) (Auto) 0 % (0-3) Neutrophils # (Auto) 10.3 x10^3uL (1.8-7.7) Lymphocytes # (Auto) 0.7 x10^3/uL (1.0-4.8) Monocytes # (Auto) 0.3 x10^3/uL (0.0-1.1) Eosinophils # (Auto) 0.0 x10^3/uL (0.0-0.7) Basophils # (Auto) 0.0 x10^3/uL (0.0-0.2) Prothrombin Time 9.3 SEC (9.4-11.4) Prothromb Time International Ratio 0.9 (0.9-1.1) Activated Partial Thromboplast Time 24 SEC (23-33) D-Dimer (Jeanie) 0.93 mg/L (0.00-0.50) Sodium Level 126 mmol/L (136-145) Potassium Level 4.2 mmol/L (3.5-5.1) Chloride Level 91 mmol/L (98-107) Carbon Dioxide Level 23 mmol/L (21-32) Anion Gap 12 (6-14) Blood Urea Nitrogen 24 mg/dL (7-20) Creatinine 1.0 mg/dL (0.6-1.0) Estimated GFR (Cockcroft-Gault) 53.1 Glucose Level 251 mg/dL (70-99) Lactic Acid Level 4.7 mmol/L (0.4-2.0) Calcium Level 9.1 mg/dL (8.5-10.1) Magnesium Level 1.7 mg/dL (1.8-2.4) Total Bilirubin 0.2 mg/dL (0.2-1.0) Direct Bilirubin 0.1 mg/dL (0.0-0.2) Aspartate Amino Transf (AST/SGOT) 23 U/L (15-37) Alanine Aminotransferase (ALT/SGPT) 18 U/L (14-59) Alkaline Phosphatase 53 U/L (46-116) Creatine Kinase 25 U/L (26-192) Troponin I Quantitative < 0.017 ng/mL (0-0.055) IA-Lxf-X-Type Natriuretic Peptide 1228 pg/mL (0-449) Total Protein 7.1 g/dL (6.4-8.2) Albumin 2.9 g/dL (3.4-5.0) Lipase 169 U/L (73-393) Urine Collection Type Unknown Urine Color Yellow Urine Clarity Clear Urine pH 7.0 Urine Specific [place] 1.015 Urine Protein 100 mg/dl (NEG-TRACE) Urine Glucose (UA) >=1000 mg/dL (NEG) Urine Ketones (Stick) Neg mg/dL (NEG) Urine Blood Neg (NEG) Urine Nitrite Neg (NEG) Urine Bilirubin Neg (NEG) Urine Urobilinogen Dipstick 0.2 mg/dL (0.2 mg/dL) Urine Leukocyte Esterase Neg (NEG) Urine RBC 1-2 /HPF (0-2) Urine WBC 1-4 /HPF (0-4) Urine Squamous Epithelial Cells Few /LPF Urine Bacteria 0 /HPF (0-FEW) Urine Opiates Screen Neg (NEG) Urine Methadone Screen Neg (NEG) Urine Barbiturates Neg (NEG) Urine Phencyclidine Screen Neg (NEG) Urine Amphetamine/Methamphetamine Neg (NEG) Urine Benzodiazepines Screen Neg (NEG) Urine Cocaine Screen Neg (NEG) Urine Cannabinoids Screen Neg (NEG) Urine Ethyl Alcohol Neg (NEG) Test 08/28/20 22:56 08/29/20 06:35 08/29/20 07:53 Lactic Acid Level 2.4 mmol/L (0.4-2.0) Troponin I Quantitative < 0.017 ng/mL (0-0.055) < 0.017 ng/mL (0-0.055) White Blood Count 9.8 x10^3/uL (4.0-11.0) Red Blood Count 2.96 x10^6/uL (3.50-5.40) Hemoglobin 9.3 g/dL (12.0-15.5) Hematocrit 26.8 % (36.0-47.0) Mean Corpuscular Volume 90 fL (79-100) Mean Corpuscular Hemoglobin 31 pg (25-35) Mean Corpuscular Hemoglobin Concent 35 g/dL (31-37) Red Cell Distribution Width 12.9 % (11.5-14.5) Platelet Count 334 x10^3/uL (140-400) Neutrophils (%) (Auto) 84 % (31-73) Lymphocytes (%) (Auto) 12 % (24-48) Monocytes (%) (Auto) 4 % (0-9) Eosinophils (%) (Auto) 0 % (0-3) Basophils (%) (Auto) 0 % (0-3) Neutrophils # (Auto) 8.2 x10^3uL (1.8-7.7) Lymphocytes # (Auto) 1.2 x10^3/uL (1.0-4.8) Monocytes # (Auto) 0.3 x10^3/uL (0.0-1.1) Eosinophils # (Auto) 0.0 x10^3/uL (0.0-0.7) Basophils # (Auto) 0.0 x10^3/uL (0.0-0.2) Segmented Neutrophils % 79 % (35-66) Band Neutrophils % 1 % (0-9) Lymphocytes % 15 % (24-48) Atypical Lymphocytes % (Manual) 2 % (0-0) Monocytes % 3 % (0-10) Toxic Granulation Present Dohle Bodies Present Platelet Estimate Increased (ADEQUATE) Large Platelets Present Sodium Level 129 mmol/L (136-145) Potassium Level 3.1 mmol/L (3.5-5.1) Chloride Level 94 mmol/L (98-107) Carbon Dioxide Level 28 mmol/L (21-32) Anion Gap 7 (6-14) Blood Urea Nitrogen 19 mg/dL (7-20) Creatinine 0.8 mg/dL (0.6-1.0) Estimated GFR (Cockcroft-Gault) 68.7 Glucose Level 208 mg/dL (70-99) Calcium Level 8.5 mg/dL (8.5-10.1) Glucose (Fingerstick) 211 mg/dL (70-99) ECHOCARDIOGRAM Echocardiogram <Conclusion> Normal EF of 60 to 65% No wall motion abnormalities Impaired relaxation Normal valves Borderline pulmonary pressures. PASP 30 to 35 mm Hg DATE: 03/15/14 0933 ASSESSMENT/PLAN Assessment/Plan 1. Acute on chronic back, hip pain. 2. Leukocytosis, lactic acidosis, fevers 3. Acute respiratory failure with COVID PNA; + for COVID 08/20/20. S/p IV Lasix 4. New onset AFIB with RVR in setting of above. Eliquis added 5. Hypertension; controlled 6. Hyperlipidemia; statin 7. Diabetes, II 8. Anemia 9. Hypokalemia Recommendations Metoprolol IV x1 now Convert Coreg to metoprolol for rate control Eliquis was added for VTE prophylaxis. Monitor Hgb TSH, lipids Replace K. Check Mg and replace as warranted Ongoing treatment of COVID as per PCP Outpatient echo when recovered from COVID Supportive care IONA TEMPLETON APRN Aug 29, 2020 08:47
[2020-08-29] MEDS ORDERED: MAGNESIUM OXIDE PO SCH (09:00)
[2020-08-29] MEDS ORDERED: [UNRECOGNIZED DRUG - OTHER] PO SCH (09:00)
[2020-08-29] MEDS ORDERED: LUTEIN PO SCH (09:00)
[2020-08-29] MEDS ORDERED: AZITHROMYCIN 250 MG TABLET. PO SCH (09:00)
[2020-08-29] MEDS ORDERED: ZEAXANTHIN PO SCH (09:00)
[2020-08-29] MEDS ORDERED: NON FORMULARY ITEM (Brimonidine Tartrate/Timolol (Combigan Eye Drops) 5 ML) OP SCH (09:00)
[2020-08-29] MEDS ORDERED: LOSARTAN 50 MG TABLET. PO SCH ×2 (09:00)
[2020-08-29] MEDS ORDERED: LOSARTAN 25 MG TABLET. PO SCH (09:00)
[2020-08-29] MEDS ORDERED: GLIMEPIRIDE 4 MG PO SCH (09:00)
[2020-08-29] MEDS ORDERED: CARVEDILOL 3.125 MG TABLET PO SCH (09:00)
[2020-08-29] MEDS: METOCLOPRAMIDE 5 MG TABLET PO SCH ×4 (09:00→21:07)
[2020-08-29] MEDS ORDERED: ELECTROLYTE (NON-ICU) PROTOCOL. MC PRN (09:15)
[2020-08-29] MEDS ORDERED: DEXTROSE 50% 25 GM / 50ML DISP.SYRIN. IV PRN (10:00)
[2020-08-29] MEDS: PANTOPRAZOLE 40 MG TABLET. PO SCH (10:00)
[2020-08-29 10:08] VITALS: BP 139/49
[2020-08-29] MEDS: APIXABAN 2.5 MG TABLET PO SCH ×2 (10:15→21:07)
[2020-08-29] MEDS: AZITHROMYCIN 250 MG TABLET. PO SCH (10:16)
--- NOTE | 2020-08-29 10:27 | EKG ---
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
[2020-08-29] MEDS: PIPERACILLIN/TAZOBACTAM 2.25 GM in IV NORMAL SALINE 50ML 50 ML IV SCH ×2 (12:17→18:00)
[2020-08-29] MEDS: INSULIN LISPRO 300 UNITS/3 ML VIAL. SQ SCH ×2 (12:27→17:31)
[2020-08-29 15:25] VITALS: BP 140/54
--- NOTE | 2020-08-29 17:28 | HP ---
ADMIT DATE: 08/28/2020 HISTORY OF PRESENT ILLNESS: An 80-year-old female with a history of COVID-19 in late July. Still continues to have shortness of breath and palpitations. The patient notes she is having severe pain in her lower back and left hip area. This may be chronic in nature, but the fact that the patient has increased shortness of breath and generalized weakness along with her diabetes is a more concern and the patient was admitted to the hospital for such. The patient is running a low-grade temperature of about 100 degrees. Her blood pressure was elevated at 199/82, respiratory rate 20, and pulse 112. She was good on room air, although is hovering around 90%. As a result of all of these, the patient was admitted to the hospital for further evaluation of her COVID-19 pneumonia and make further evaluation on her as indicated with breathing treatments, IV antibiotic therapy, steroids and the like. PAST MEDICAL HISTORY: Include cataracts, glaucoma, hypercholesterolemia, hypertension, colitis, cholecystectomy, GERD, hysterectomy, and arthritis. She has had back surgery, diabetes. Pneumococcal vaccine up-to-date. FAMILY HISTORY: Unremarkable. ALLERGIES: LISINOPRIL. SOCIAL HISTORY: The patient denies smoking, alcohol. or drug use. Speaks only Pakistani. She is from [place] and is a full code. 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 The patient otherwise denies chest pain, nausea, vomiting, melena, hematochezia, or hematemesis. Does have diffuse abdominal pain, however. PHYSICAL EXAMINATION: GENERAL: This is a pleasant white female, in moderate amount of distress. VITAL SIGNS: Blood pressure as noted earlier had been as high as approximately 200/80 and with medication came down to approximately 140/50, respiratory rate 18, pulse still around 100, temperature 98.6, and oxygen saturation 90% on room air. HEENT: Otherwise, her head was atraumatic and normocephalic. Eyes: PERRLA without jaundice. Mouth and throat were normal. NECK: Supple, without JVD, carotid bruits, nor thyromegaly. LUNGS: Diminished. Poor movement of air. CARDIOVASCULAR: Regular sinus rhythm, although at times, goes into atrial fibrillation with RVR. ABDOMEN: The patient's abdomen was soft, diffuse tenderness in the left lower quadrant area. EXTREMITIES: No clubbing, cyanosis, nor edema. NEUROLOGIC: The patient was baseline stable there. LABORATORY DATA: The patient's labs look like a white count of 11,000, hemoglobin and hematocrit 10 and 32. Chemistries show a sodium of 126, potassium 4.2, BUN and creatinine 24 and 1, blood sugar around 300-250. BNP of 1200. Troponin normal. Albumin low at 2.9. Urine shows spilling over sugars. IMAGING: Chest x-ray shows multifocal bilateral pneumonia. Lumbar CT shows prior surgeries, but no obvious more problems than usual with her back and, of course, the CT of the pelvis showing the hips showed no acute findings, no abnormalities noted. IMPRESSION: The patient was admitted for COVID-19 pneumonia, multi-lobe pneumonia, generalized weakness, hypertensive urgency, type 2 diabetes, failure of outpatient therapy, hyponatremia, poorly-controlled diabetes, elevated BNP, atrial fibrillation with rapid ventricular response paroxysmal. PLAN: The patient will be admitted for further evaluation. Make further evaluation on her with IV antibiotic therapy. Cardiology consult and pain management. SHAN BALDWIN MD DR: MARY/perry JOB#: [id number] / [id number]
[2020-08-29] MEDS: GLIMEPIRIDE 2 MG TABLET PO SCH (17:29)
[2020-08-29] MEDS: DEXAMETHASONE SOD PHOS 4 MG/ML VIAL. IVP SCH ×2 (17:29→21:08)
[2020-08-29 20:10] VITALS: BP 112/48
--- NOTE | 2020-08-29 20:59 | NUR ---
1800 Zosyn 2.25gm dose missed. Per pharmacy, med non-administered and will give next scheduled dose at 0000.
[2020-08-29] MEDS ORDERED: traZODone 100 MG TABLET. PO SCH (21:00)
[2020-08-29] MEDS ORDERED: TIMOLOL 0.25% OPHTH SOLUTION 5ML BOTTLE. OU SCH (21:00)
[2020-08-29] MEDS ORDERED: INSULIN GLARGINE SYRINGE. SQ SCH (21:00)
[2020-08-29] MEDS: LOSARTAN 25 MG TABLET. PO SCH (21:00)
[2020-08-29] MEDS: BRIMONIDINE 0.2% OPHTH SOLUTION 5ML BOTTLE. OU SCH ×2 (21:00→21:04)
[2020-08-29] MEDS: ATORVASTATIN CALCIUM 10 MG TABLET. PO SCH (21:07)
[2020-08-29] MEDS: LACTOBACILLUS RHAMNOSUS GG 1 CAPSULE. PO SCH (21:07)
[2020-08-29] MEDS: METOPROLOL TART IMMED RELEASE 25 MG TABLET. PO SCH (21:07)
[2020-08-29] MEDS: TIMOLOL 0.5% OPHTH SOLUTION 5ML BOTTLE. OU SCH (21:30)
[2020-08-30] MEDS: ALBUTEROL SULFATE 8GM INHALER. INH SCH ×5 (00:27→23:49)
[2020-08-30] MEDS: PIPERACILLIN/TAZOBACTAM 2.25 GM in IV NORMAL SALINE 50ML 50 ML IV SCH ×5 (00:28→23:49)
[2020-08-30 00:40] VITALS: BP 113/45
[2020-08-30] MEDS: IV RINGERS SOLUTION,LACTATED 1,000 ML IV SCH ×2 (03:00→09:15)
[2020-08-30] MEDS: DEXAMETHASONE SOD PHOS 4 MG/ML VIAL. IVP SCH ×4 (06:01→20:44)
[2020-08-30 06:55] LABS: BASO % 0 % (0-3); EOS % 0 % (0-3); HEMATOCRIT 26.4 % (36.0-47.0); HEMOGLOBIN 9.2 g/dL (12.0-15.5); LYMPH # 0.5 x10^3/uL (1.0-4.8); LYMPH % 7 % (24-48); MEAN CORPUSCULAR HEMOGLOBIN 31 pg (25-35); MEAN CORPUSCULAR HGB CONC 35 g/dL (31-37); MEAN CORPUSCULAR VOLUME 91 fL (79-100); MONO # 0.2 x10^3/uL (0.0-1.1); MONO % 2 % (0-9); NEUT # 6.3 x10^3uL (1.8-7.7); NEUT % 90 % (31-73); PLATELET COUNT 397 x10^3/uL (140-400); RED BLOOD COUNT 2.92 x10^6/uL (3.50-5.40)
[2020-08-30 06:58] LABS: CALCIUM 8.3 mg/dL (8.5-10.1); CREATININE 0.8 mg/dL (0.6-1.0); GFR 68.7; POTASSIUM 3.5 mmol/L (3.5-5.1)
[2020-08-30] MEDS: TIMOLOL 0.5% OPHTH SOLUTION 5ML BOTTLE. OU SCH ×2 (09:00→20:43)
[2020-08-30] MEDS: BRIMONIDINE 0.2% OPHTH SOLUTION 5ML BOTTLE. OU SCH ×2 (09:00→20:44)
[2020-08-30] MEDS: LOSARTAN 25 MG TABLET. PO SCH ×2 (09:00→20:44)
[2020-08-30] MEDS: PANTOPRAZOLE 40 MG TABLET. PO SCH (09:08)
[2020-08-30] MEDS: METOPROLOL TART IMMED RELEASE 25 MG TABLET. PO SCH ×2 (09:08→20:43)
[2020-08-30] MEDS: LACTOBACILLUS RHAMNOSUS GG 1 CAPSULE. PO SCH ×2 (09:08→20:43)
[2020-08-30] MEDS: GLIMEPIRIDE 2 MG TABLET PO SCH ×2 (09:08→17:13)
[2020-08-30] MEDS: ASPIRIN ENTERIC COATED 81 MG TABLET.DR. PO SCH (09:08)
[2020-08-30] MEDS: METOCLOPRAMIDE 5 MG TABLET PO SCH ×4 (09:08→20:43)
[2020-08-30] MEDS: AZITHROMYCIN 250 MG TABLET. PO SCH (09:09)
[2020-08-30] MEDS: MULTIVITAMIN I-VITE TABLET. PO SCH (09:09)
[2020-08-30] MEDS: APIXABAN 2.5 MG TABLET PO SCH ×2 (09:09→20:43)
[2020-08-30] MEDS: MAGNESIUM OXIDE 400 MG TABLET PO SCH (09:09)
[2020-08-30] MEDS: INSULIN LISPRO 300 UNITS/3 ML VIAL. SQ SCH ×4 (09:10→17:12)
[2020-08-30 09:11] VITALS: BP 144/59
--- NOTE | 2020-08-30 09:12 | PDOC ---
CARDIO Progress Notes Date & Time Date of Service DATE: 08/30/20 TIME: 09:11 Time of Evaluation 09:11 Subjective Notes No CP, dizziness, palpitations. Breathing not worse. Vitals Vitals Vital Signs Date Time Temp Pulse Resp B/P (MAP) Pulse Ox O2 Delivery O2 Flow Rate FiO2 08/30/20 00:45 93 Nasal Cannula 2.0 08/30/20 00:40 98.5 77 20 113/45 (67) Weight Weight [ ] Input and Output I.O. Intake and Output 08/30/20 07:00 Intake Total 2550 ml Balance 2550 ml Intake Oral 1500 ml IV Total 1050 ml # Voids 7 # Bowel Movements 1 Laboratory Labs Laboratory Tests Test 08/28/20 18:12 08/28/20 18:30 08/28/20 18:40 08/28/20 22:31 Glucose (Fingerstick) 313 mg/dL (70-99) 226 mg/dL (70-99) White Blood Count 11.3 x10^3/uL (4.0-11.0) Red Blood Count 3.47 x10^6/uL (3.50-5.40) Hemoglobin 10.8 g/dL (12.0-15.5) Hematocrit 32.0 % (36.0-47.0) Mean Corpuscular Volume 92 fL (79-100) Mean Corpuscular Hemoglobin 31 pg (25-35) Mean Corpuscular Hemoglobin Concent 34 g/dL (31-37) Red Cell Distribution Width 13.1 % (11.5-14.5) Platelet Count 421 x10^3/uL (140-400) Neutrophils (%) (Auto) 91 % (31-73) Lymphocytes (%) (Auto) 6 % (24-48) Monocytes (%) (Auto) 3 % (0-9) Eosinophils (%) (Auto) 0 % (0-3) Basophils (%) (Auto) 0 % (0-3) Neutrophils # (Auto) 10.3 x10^3uL (1.8-7.7) Lymphocytes # (Auto) 0.7 x10^3/uL (1.0-4.8) Monocytes # (Auto) 0.3 x10^3/uL (0.0-1.1) Eosinophils # (Auto) 0.0 x10^3/uL (0.0-0.7) Basophils # (Auto) 0.0 x10^3/uL (0.0-0.2) Prothrombin Time 9.3 SEC (9.4-11.4) Prothromb Time International Ratio 0.9 (0.9-1.1) Activated Partial Thromboplast Time 24 SEC (23-33) D-Dimer (Jeanie) 0.93 mg/L (0.00-0.50) Sodium Level 126 mmol/L (136-145) Potassium Level 4.2 mmol/L (3.5-5.1) Chloride Level 91 mmol/L (98-107) Carbon Dioxide Level 23 mmol/L (21-32) Anion Gap 12 (6-14) Blood Urea Nitrogen 24 mg/dL (7-20) Creatinine 1.0 mg/dL (0.6-1.0) Estimated GFR (Cockcroft-Gault) 53.1 Glucose Level 251 mg/dL (70-99) Lactic Acid Level 4.7 mmol/L (0.4-2.0) Calcium Level 9.1 mg/dL (8.5-10.1) Magnesium Level 1.7 mg/dL (1.8-2.4) Total Bilirubin 0.2 mg/dL (0.2-1.0) Direct Bilirubin 0.1 mg/dL (0.0-0.2) Aspartate Amino Transf (AST/SGOT) 23 U/L (15-37) Alanine Aminotransferase (ALT/SGPT) 18 U/L (14-59) Alkaline Phosphatase 53 U/L (46-116) Creatine Kinase 25 U/L (26-192) Troponin I Quantitative < 0.017 ng/mL (0-0.055) RH-Bpb-Q-Type Natriuretic Peptide 1228 pg/mL (0-449) Total Protein 7.1 g/dL (6.4-8.2) Albumin 2.9 g/dL (3.4-5.0) Lipase 169 U/L (73-393) Thyroid Stimulating Hormone (TSH) 0.467 uIU/mL (0.358-3.740) Urine Collection Type Unknown Urine Color Yellow Urine Clarity Clear Urine pH 7.0 Urine Specific [place] 1.015 Urine Protein 100 mg/dl (NEG-TRACE) Urine Glucose (UA) >=1000 mg/dL (NEG) Urine Ketones (Stick) Neg mg/dL (NEG) Urine Blood Neg (NEG) Urine Nitrite Neg (NEG) Urine Bilirubin Neg (NEG) Urine Urobilinogen Dipstick 0.2 mg/dL (0.2 mg/dL) Urine Leukocyte Esterase Neg (NEG) Urine RBC 1-2 /HPF (0-2) Urine WBC 1-4 /HPF (0-4) Urine Squamous Epithelial Cells Few /LPF Urine Bacteria 0 /HPF (0-FEW) Urine Opiates Screen Neg (NEG) Urine Methadone Screen Neg (NEG) Urine Barbiturates Neg (NEG) Urine Phencyclidine Screen Neg (NEG) Urine Amphetamine/Methamphetamine Neg (NEG) Urine Benzodiazepines Screen Neg (NEG) Urine Cocaine Screen Neg (NEG) Urine Cannabinoids Screen Neg (NEG) Urine Ethyl Alcohol Neg (NEG) Test 08/28/20 22:56 08/29/20 06:35 08/29/20 07:53 08/29/20 08:48 Lactic Acid Level 2.4 mmol/L (0.4-2.0) Troponin I Quantitative < 0.017 ng/mL (0-0.055) < 0.017 ng/mL (0-0.055) < 0.017 ng/mL (0-0.055) White Blood Count 9.8 x10^3/uL (4.0-11.0) Red Blood Count 2.96 x10^6/uL (3.50-5.40) Hemoglobin 9.3 g/dL (12.0-15.5) Hematocrit 26.8 % (36.0-47.0) Mean Corpuscular Volume 90 fL (79-100) Mean Corpuscular Hemoglobin 31 pg (25-35) Mean Corpuscular Hemoglobin Concent 35 g/dL (31-37) Red Cell Distribution Width 12.9 % (11.5-14.5) Platelet Count 334 x10^3/uL (140-400) Neutrophils (%) (Auto) 84 % (31-73) Lymphocytes (%) (Auto) 12 % (24-48) Monocytes (%) (Auto) 4 % (0-9) Eosinophils (%) (Auto) 0 % (0-3) Basophils (%) (Auto) 0 % (0-3) Neutrophils # (Auto) 8.2 x10^3uL (1.8-7.7) Lymphocytes # (Auto) 1.2 x10^3/uL (1.0-4.8) Monocytes # (Auto) 0.3 x10^3/uL (0.0-1.1) Eosinophils # (Auto) 0.0 x10^3/uL (0.0-0.7) Basophils # (Auto) 0.0 x10^3/uL (0.0-0.2) Segmented Neutrophils % 79 % (35-66) Band Neutrophils % 1 % (0-9) Lymphocytes % 15 % (24-48) Atypical Lymphocytes % (Manual) 2 % (0-0) Monocytes % 3 % (0-10) Toxic Granulation Present Dohle Bodies Present Platelet Estimate Increased (ADEQUATE) Large Platelets Present Sodium Level 129 mmol/L (136-145) Potassium Level 3.1 mmol/L (3.5-5.1) Chloride Level 94 mmol/L (98-107) Carbon Dioxide Level 28 mmol/L (21-32) Anion Gap 7 (6-14) Blood Urea Nitrogen 19 mg/dL (7-20) Creatinine 0.8 mg/dL (0.6-1.0) Estimated GFR (Cockcroft-Gault) 68.7 Glucose Level 208 mg/dL (70-99) Calcium Level 8.5 mg/dL (8.5-10.1) Glucose (Fingerstick) 211 mg/dL (70-99) Magnesium Level 2.1 mg/dL (1.8-2.4) Triglycerides Level 108 mg/dL (0-150) Cholesterol Level 129 mg/dL (0-200) LDL Cholesterol, Calculated 64 mg/dL (0-100) VLDL Cholesterol, Calculated 21 mg/dL (0-40) Non-HDL Cholesterol Calculated 85 mg/dL (0-129) HDL Cholesterol 44 mg/dL (40-60) Cholesterol/HDL Ratio 2.0 Test 08/29/20 11:58 08/29/20 16:58 08/29/20 20:27 08/30/20 06:10 Glucose (Fingerstick) 397 mg/dL (70-99) 280 mg/dL (70-99) 295 mg/dL (70-99) White Blood Count 7.0 x10^3/uL (4.0-11.0) Red Blood Count 2.92 x10^6/uL (3.50-5.40) Hemoglobin 9.2 g/dL (12.0-15.5) Hematocrit 26.4 % (36.0-47.0) Mean Corpuscular Volume 91 fL (79-100) Mean Corpuscular Hemoglobin 31 pg (25-35) Mean Corpuscular Hemoglobin Concent 35 g/dL (31-37) Red Cell Distribution Width 13.0 % (11.5-14.5) Platelet Count 397 x10^3/uL (140-400) Neutrophils (%) (Auto) 90 % (31-73) Lymphocytes (%) (Auto) 7 % (24-48) Monocytes (%) (Auto) 2 % (0-9) Eosinophils (%) (Auto) 0 % (0-3) Basophils (%) (Auto) 0 % (0-3) Neutrophils # (Auto) 6.3 x10^3uL (1.8-7.7) Lymphocytes # (Auto) 0.5 x10^3/uL (1.0-4.8) Monocytes # (Auto) 0.2 x10^3/uL (0.0-1.1) Eosinophils # (Auto) 0.0 x10^3/uL (0.0-0.7) Basophils # (Auto) 0.0 x10^3/uL (0.0-0.2) Sodium Level 127 mmol/L (136-145) Potassium Level 3.5 mmol/L (3.5-5.1) Chloride Level 94 mmol/L (98-107) Carbon Dioxide Level 24 mmol/L (21-32) Anion Gap 9 (6-14) Blood Urea Nitrogen 17 mg/dL (7-20) Creatinine 0.8 mg/dL (0.6-1.0) Estimated GFR (Cockcroft-Gault) 68.7 Glucose Level 328 mg/dL (70-99) Calcium Level 8.3 mg/dL (8.5-10.1) Test 08/30/20 07:41 Glucose (Fingerstick) 333 mg/dL (70-99) Microbiology Micro Microbiology 08/28/20 Blood Culture - Preliminary, Resulted NO GROWTH AFTER 1 DAY... Physical Exams HEENT: Neck Supple W Full Motion Chest: Symmetric Lungs: Other (on NC) Heart: RRR Abdomen: Soft N/T Neurology: alert, follow commands Assessment Assessment 1. Acute on chronic back, hip pain. 2. Leukocytosis, lactic acidosis, fevers 3. Acute respiratory failure with COVID PNA; + for COVID 08/20/20. S/p IV Lasix 4. New onset AFIB with RVR in setting of above. Converted back to SR yesterday morning and has been maintaining 5. Hypertension; controlled 6. Hyperlipidemia; statin LDL 64 7. Diabetes, II 8. Anemia 9. Hypokalemia Recommendations Continue metoprolol for rate control Eliquis was added for VTE prophylaxis. Monitor Hgb Hold Losartan as need for hypotension Ongoing treatment of COVID as per PCP Outpatient echo when recovered from COVID Supportive care IONA TEMPLETON APRN Aug 30, 2020 09:12
[2020-08-30] MEDS: IV NORMAL SALINE 1,000ML 1,000 ML IV SCH (12:30)
[2020-08-30] MEDS ORDERED: HYDROcodone/APAP 5/325MG 1 TAB TABLET PO PRN (12:30)
[2020-08-30] MEDS ORDERED: INSULIN GLARGINE SYRINGE. SQ SCH (13:00)
[2020-08-30 13:55] VITALS: BP 154/74
[2020-08-30] MEDS: PREGABALIN 25 MG CAPSULE PO SCH ×2 (14:00→20:44)
[2020-08-30 20:33] VITALS: BP 127/53
[2020-08-30] MEDS: ATORVASTATIN CALCIUM 10 MG TABLET. PO SCH (20:43)
[2020-08-30] MEDS: INSULIN GLARGINE SYRINGE. SQ SCH (21:09)
[2020-08-30 22:32] VITALS: BP 125/45
[2020-08-31] MEDS: IV NORMAL SALINE 1,000ML 1,000 ML IV SCH (02:36)
[2020-08-31 05:37] VITALS: BP 143/91
[2020-08-31] MEDS: ALBUTEROL SULFATE 8GM INHALER. INH SCH ×3 (06:04→17:15)
[2020-08-31] MEDS: PIPERACILLIN/TAZOBACTAM 2.25 GM in IV NORMAL SALINE 50ML 50 ML IV SCH (06:04)
[2020-08-31 06:16] LABS: BASO % 0 % (0-3); EOS % 0 % (0-3); HEMATOCRIT 25.3 % (36.0-47.0); HEMOGLOBIN 8.8 g/dL (12.0-15.5); LYMPH # 0.5 x10^3/uL (1.0-4.8); LYMPH % 5 % (24-48); MEAN CORPUSCULAR HEMOGLOBIN 32 pg (25-35); MEAN CORPUSCULAR HGB CONC 35 g/dL (31-37); MEAN CORPUSCULAR VOLUME 90 fL (79-100); MONO # 0.3 x10^3/uL (0.0-1.1); MONO % 3 % (0-9); NEUT % 91 % (31-73); PLATELET COUNT 366 x10^3/uL (140-400); RED BLOOD COUNT 2.81 x10^6/uL (3.50-5.40); WHITE BLOOD COUNT 9.9 x10^3/uL (4.0-11.0)
[2020-08-31 06:34] LABS: CALCIUM 7.7 mg/dL (8.5-10.1); CREATININE 0.7 mg/dL (0.6-1.0); GFR 80.1
[2020-08-31 06:38] LABS: POTASSIUM 2.9 mmol/L (3.5-5.1)
[2020-08-31] MEDS ORDERED: POTASSIUM BICARB 10 MEQ EFFERVESCENT TABLET. FT SCH (08:00)
--- NOTE | 2020-08-31 08:35 | RAD ---
Single view of the chest. 08/31/2020 5:43 AM Indication: Reason: Short of air, pneumonia / Spl. Instructions: / History: Comparison: Chest radiograph August 28, 2020 Findings: Improved but persistent patchy infiltrates are seen bilaterally. No pneumothorax or signifi cant effusion is seen. Heart size remains normal. No acute osseous changes are identified in the inte rim. Lordotic projection noted. IMPRESSION:Improved but persistent patchy bilateral infiltrates Electronically signed by: Aj Retana MD (08/31/2020 8:32 AM) [id number]
[2020-08-31] MEDS: POTASSIUM CHLORIDE 20 MEQ TABLET.ER. PO SCH ×2 (08:40→12:15)
[2020-08-31] MEDS: LOSARTAN 25 MG TABLET. PO SCH ×2 (08:40→21:29)
[2020-08-31] MEDS: ASPIRIN ENTERIC COATED 81 MG TABLET.DR. PO SCH (08:41)
[2020-08-31] MEDS: AZITHROMYCIN 250 MG TABLET. PO SCH (08:41)
[2020-08-31] MEDS: METOCLOPRAMIDE 5 MG TABLET PO SCH ×4 (08:41→21:41)
[2020-08-31] MEDS: LACTOBACILLUS RHAMNOSUS GG 1 CAPSULE. PO SCH ×2 (08:41→21:29)
[2020-08-31] MEDS: APIXABAN 2.5 MG TABLET PO SCH ×2 (08:41→21:29)
[2020-08-31] MEDS: METOPROLOL TART IMMED RELEASE 25 MG TABLET. PO SCH ×2 (08:41→21:29)
[2020-08-31] MEDS: PANTOPRAZOLE 40 MG TABLET. PO SCH (08:41)
[2020-08-31] MEDS: MULTIVITAMIN I-VITE TABLET. PO SCH (08:41)
[2020-08-31] MEDS: MAGNESIUM OXIDE 400 MG TABLET PO SCH (08:41)
[2020-08-31] MEDS: GLIMEPIRIDE 2 MG TABLET PO SCH ×2 (08:42→17:14)
[2020-08-31] MEDS: INSULIN LISPRO 300 UNITS/3 ML VIAL. SQ SCH ×3 (08:46→16:48)
[2020-08-31] MEDS: TIMOLOL 0.5% OPHTH SOLUTION 5ML BOTTLE. OU SCH ×2 (09:00→21:28)
[2020-08-31] MEDS: PREGABALIN 25 MG CAPSULE PO SCH ×3 (09:00→21:00)
[2020-08-31] MEDS: INSULIN GLARGINE SYRINGE. SQ SCH ×2 (09:00→21:41)
[2020-08-31] MEDS: BRIMONIDINE 0.2% OPHTH SOLUTION 5ML BOTTLE. OU SCH ×2 (09:00→21:00)
--- NOTE | 2020-08-31 09:02 | PN ---
DATE: 08/30/2020 SUBJECTIVE: An 80-year-old female in with sepsis, pneumonia, and COVID-19. The patient seems to be doing a little better this morning through guard sergeant. OBJECTIVE: VITAL SIGNS: Blood pressure 140/59, respiratory rate 20, pulse 72, afebrile. Blood sugars were elevated. We will put her on a sliding scale in addition, additional insulin being given to help her stabilize sugar. Otherwise, she says she is feeling better. She has requested a change in diet to just Jello and soup. GENERAL: Otherwise, her speech is fluent, spontaneous in Danish, very eloquent. LUNGS: The patient's lungs are diminished. CARDIOVASCULAR: Regular sinus rhythm. ____ VITAL SIGNS: She is on 1 liter at 95%, blood pressure 140/60, respiratory rate 20, pulse 72, afebrile. GENERAL: Alert and oriented. LUNGS: Clear. CARDIOVASCULAR: Stable. ABDOMEN: Soft. EXTREMITIES: Does have neuropathy in her legs secondary to her diabetes. Her blood sugars are running high in the 300, so we adjusted her on a sliding scale ____ placed her on normal saline low infusion there. Repeat those labs in the morning. Also started on Lyrica for her diabetic neuropathy. IMPRESSION: Sepsis, pneumonia, COVID-19, chronic pain of her hip and lower back. So, we will just put her on some Lyrica for that, anemia unknown etiology, poorly controlled diabetes, probable sepsis, severe protein malnutrition, hyponatremia. PLAN: As above. Continue with IV antibiotic therapy. change over to normal saline. Start her on Lyrica, adjust sliding scale. Cardiology is reviewing her as well. SHAN BALDWIN MD DR: MARY/perry JOB#: [id number] / [id number]
[2020-08-31] MEDS: DEXAMETHASONE 4 MG TABLET PO SCH ×2 (11:00→21:30)
--- NOTE | 2020-08-31 11:01 | NUR ---
NURSING NOTE-PT RN, ET ESCAPEMENT MATCHER BOTH ATTEMPT TO REESTABLISH IV ACCESS. ALL ATTEMPTS GOT FLASH, BUT IMMEDIATELY INFILTRATED ON FLUSH. CONTACTED AJAY MILES'D ORDER TO CHANGE IV MEDICATIONS TO PO.
[2020-08-31 11:12] VITALS: BP 172/68
[2020-08-31] MEDS: levoFLOXacin 250 MG TABLET PO SCH (12:14)
[2020-08-31 14:57] VITALS: BP 175/78
[2020-08-31] MEDS ORDERED: ELECTROLYTE (NON-ICU) PROTOCOL. MC PRN (18:30)
[2020-08-31] MEDS ORDERED: amLODIPine BESYLATE 5 MG TABLET PO ONE (18:30)
[2020-08-31] MEDS ORDERED: amLODIPine BESYLATE 10 MG TABLET PO ONE (18:45)
[2020-08-31 20:09] VITALS: BP 153/63
[2020-08-31] MEDS: CEFDINIR 300 MG CAPSULE PO SCH (21:29)
[2020-08-31] MEDS: ATORVASTATIN CALCIUM 10 MG TABLET. PO SCH (21:30)
[2020-08-31 22:39] VITALS: BP 159/63
--- NOTE | 2020-09-01 03:30 | PN ---
DATE: SUBJECTIVE: An 80-year-old female in with sepsis, pneumonia and COVID-19, doing a little bit better, had been having trouble getting an IV into her ____ and it is not quite clear she really needs further IV antibiotics and just turn her over to oral antibiotics to see how she is doing. Her hemoglobin again has dropped slightly to 8.8 and 25 and we continued to monitor her carefully on that situation. Potassium was also low (NC). The patient will continue to be monitored carefully on this. Continue on at least oral antibiotics as she continues to make progress with the pneumonia. OBJECTIVE: VITAL SIGNS: Otherwise blood pressure 175/78 (NC), respiratory rate 26, pulse 81, afebrile. She is on 2 liters at 96%. GENERAL: The patient is alert and oriented. She is feeling better. The Lyrica helped her with her neuropathy. LUNGS: Diminished, but basically clear. CARDIOVASCULAR: Regular sinus rhythm, S1, S2, without murmur, rub, thrill or extra heart sound. ABDOMEN: Soft, nontender. EXTREMITIES: No clubbing, cyanosis, nor edema. The patient continued to be monitored carefully to make further evaluation on her as indicated. IMPRESSION: COVID-19 pneumonia, sepsis, hypokalemia and type 2 diabetes. PLAN: As above. SHAN BALDWIN MD DR: MARY/perry JOB#: [id number] / [id number]
[2020-09-01 05:01] VITALS: BP 161/69
[2020-09-01] MEDS: levoFLOXacin 250 MG TABLET PO SCH (06:00)
[2020-09-01] MEDS: ALBUTEROL SULFATE 8GM INHALER. INH SCH ×4 (06:58→17:46)
[2020-09-01] MEDS: METOCLOPRAMIDE 5 MG TABLET PO SCH ×4 (08:10→21:25)
[2020-09-01] MEDS: LACTOBACILLUS RHAMNOSUS GG 1 CAPSULE. PO SCH ×2 (08:10→21:25)
[2020-09-01] MEDS: ASPIRIN ENTERIC COATED 81 MG TABLET.DR. PO SCH (08:10)
[2020-09-01] MEDS: MULTIVITAMIN I-VITE TABLET. PO SCH (08:11)
[2020-09-01] MEDS: PANTOPRAZOLE 40 MG TABLET. PO SCH (08:11)
[2020-09-01] MEDS: GLIMEPIRIDE 2 MG TABLET PO SCH ×2 (08:11→17:46)
[2020-09-01] MEDS: AZITHROMYCIN 250 MG TABLET. PO SCH (08:11)
[2020-09-01] MEDS: METOPROLOL TART IMMED RELEASE 25 MG TABLET. PO SCH ×2 (08:12→21:27)
[2020-09-01] MEDS: CEFDINIR 300 MG CAPSULE PO SCH ×2 (08:12→21:26)
[2020-09-01] MEDS: MAGNESIUM OXIDE 400 MG TABLET PO SCH (08:13)
[2020-09-01] MEDS: DEXAMETHASONE 4 MG TABLET PO SCH ×2 (08:13→21:28)
[2020-09-01] MEDS: LOSARTAN 25 MG TABLET. PO SCH ×2 (08:13→21:27)
[2020-09-01] MEDS: TIMOLOL 0.5% OPHTH SOLUTION 5ML BOTTLE. OU SCH ×2 (08:13→21:28)
[2020-09-01] MEDS: APIXABAN 2.5 MG TABLET PO SCH (08:13)
[2020-09-01] MEDS: PREGABALIN 25 MG CAPSULE PO SCH ×3 (08:14→21:00)
[2020-09-01] MEDS: BRIMONIDINE 0.2% OPHTH SOLUTION 5ML BOTTLE. OU SCH ×2 (08:14→21:00)
[2020-09-01] MEDS: INSULIN LISPRO 300 UNITS/3 ML VIAL. SQ SCH ×3 (08:17→17:00)
[2020-09-01] MEDS: INSULIN GLARGINE SYRINGE. SQ SCH ×2 (08:20→21:00)
[2020-09-01] MEDS ORDERED: amLODIPine BESYLATE 10 MG TABLET PO SCH (09:00)
[2020-09-01 09:32] LABS: FECAL OB PT POSITIVE (NEG)
--- NOTE | 2020-09-01 10:30 | NUR ---
Pt seen by Dr Ba. Informed of positive hemacult. No new orders. Pt up to BR adl.
[2020-09-01 11:03] VITALS: BP 135/60
[2020-09-01] MEDS: SUCRALFATE 1 GM/10 ML ORAL.SUSP. PO SCH ×4 (11:30→21:25)
[2020-09-01 15:43] VITALS: BP 130/61
--- NOTE | 2020-09-01 18:47 | NUR ---
Pt has been pleasant. Compliant with meds and cares.
[2020-09-01 20:44] VITALS: BP 136/57
--- NOTE | 2020-09-01 21:25 | PN ---
DATE: SUBJECTIVE: An 80-year-old female in with sepsis, pneumonia, COVID-19. The patient is resting fairly comfortably. Neuropathy seems to be doing a little bit better. She is overall improving, but still extremely weak and the like. The patient did have a positive Hemoccult. Hemoglobin dropped down to 8.8, but still very steady there. Blood sugars are under control. The patient continued to be monitored on all those aspects as well, but her breathing is markedly improved. OBJECTIVE: VITAL SIGNS: Her blood pressure is 130/60, respiratory rate 20, pulse 90, afebrile. HEENT: The patient's head was atraumatic, normocephalic. Eyes: PERRLA without jaundice. The mouth and throat were normal. NECK: Supple. No JVD or thyromegaly. LUNGS: Diminished, but basically clear. CARDIOVASCULAR: Regular sinus rhythm. ABDOMEN: Soft, nontender. EXTREMITIES: No clubbing or cyanosis. Trace edema in the left leg compared to that of the right. The patient will be placed on Carafate and Protonix and SCD hoses and the like there and aspirin every other day instead of every day. Since she pulled out her IV, they are not able to start one. The patient will go ahead and place her on Omnicef and Decadron orally as well as azithromycin orally as well. IMPRESSION: Sepsis, pneumonia, COVID-19, hypokalemia, type 2 diabetes, hyperglycemia, anemia. PLAN: As above. SHAN BALDWIN MD DR: MARY/perry JOB#: [id number] / [id number]
[2020-09-01] MEDS: ATORVASTATIN CALCIUM 10 MG TABLET. PO SCH (21:28)
[2020-09-01 22:30] VITALS: BP 107/67
[2020-09-02] MEDS: ALBUTEROL SULFATE 8GM INHALER. INH SCH ×4 (06:00→17:04)
[2020-09-02] MEDS: levoFLOXacin 250 MG TABLET PO SCH (06:35)
[2020-09-02] MEDS: PANTOPRAZOLE 40 MG TABLET. PO SCH ×2 (07:30→08:25)
[2020-09-02 07:32] LABS: CALCIUM 8.4 mg/dL (8.5-10.1); GFR 53.1; POTASSIUM 4.2 mmol/L (3.5-5.1)
[2020-09-02 07:33] VITALS: BP 150/69
[2020-09-02] MEDS: LACTOBACILLUS RHAMNOSUS GG 1 CAPSULE. PO SCH ×2 (08:24→20:49)
[2020-09-02] MEDS: SUCRALFATE 1 GM/10 ML ORAL.SUSP. PO SCH ×3 (08:24→16:30)
[2020-09-02] MEDS: METOCLOPRAMIDE 5 MG TABLET PO SCH ×4 (08:25→20:49)
[2020-09-02] MEDS: MULTIVITAMIN I-VITE TABLET. PO SCH (08:25)
[2020-09-02] MEDS: CEFDINIR 300 MG CAPSULE PO SCH ×2 (08:25→20:49)
[2020-09-02] MEDS: METOPROLOL TART IMMED RELEASE 25 MG TABLET. PO SCH ×2 (08:25→20:50)
[2020-09-02] MEDS: amLODIPine BESYLATE 5 MG TABLET PO SCH (08:25)
[2020-09-02] MEDS: MAGNESIUM OXIDE 400 MG TABLET PO SCH (08:25)
[2020-09-02] MEDS: DEXAMETHASONE 4 MG TABLET PO SCH (08:26)
[2020-09-02] MEDS: LOSARTAN 25 MG TABLET. PO SCH ×2 (08:26→20:50)
[2020-09-02] MEDS: PREGABALIN 25 MG CAPSULE PO SCH (08:26)
[2020-09-02] MEDS: AZITHROMYCIN 250 MG TABLET. PO SCH (08:26)
[2020-09-02] MEDS: GLIMEPIRIDE 2 MG TABLET PO SCH ×2 (08:26→17:04)
[2020-09-02] MEDS: INSULIN GLARGINE SYRINGE. SQ SCH ×2 (08:33→20:55)
[2020-09-02] MEDS: INSULIN LISPRO 300 UNITS/3 ML VIAL. SQ SCH ×3 (08:34→17:09)
[2020-09-02] MEDS: BRIMONIDINE 0.2% OPHTH SOLUTION 5ML BOTTLE. OU SCH ×2 (08:37→20:50)
[2020-09-02] MEDS: TIMOLOL 0.5% OPHTH SOLUTION 5ML BOTTLE. OU SCH ×2 (08:37→20:21)
[2020-09-02 12:08] VITALS: BP 99/59
[2020-09-02] MEDS: PREGABALIN 50 MG CAPSULE PO SCH ×2 (12:42→20:49)
[2020-09-02 14:29] VITALS: BP 149/59
[2020-09-02] MEDS: ASPIRIN ENTERIC COATED 81 MG TABLET.DR. PO SCH (17:04)
[2020-09-02] MEDS ORDERED: ZOLPIDEM 5 MG TABLET. PO PRN (18:45)
[2020-09-02 19:36] VITALS: BP 124/82
[2020-09-02] MEDS: ATORVASTATIN CALCIUM 10 MG TABLET. PO SCH (20:50)
[2020-09-02 22:27] VITALS: BP 105/46
--- NOTE | 2020-09-02 22:35 | PN ---
DATE: SUBJECTIVE: An 80-year-old female in with sepsis, COVID-19 pneumonia, severe diabetes of course. The patient is resting fairly comfortably, making fairly good progress overall. Hemoglobin has come up. She did want the Carafate, though we did make her on Protonix, cut out her Eliquis that she has gone back into sinus rhythm, was no longer in atrial fibrillation. The patient is making good progress overall, feeling much better. We are waiting for dismissal home. OBJECTIVE: VITAL SIGNS: Her blood pressure does ____, but presently runs approximately 150/60, respiratory rate 16, pulse 95, and afebrile, 97% on nasal cannula 2 liters. HEENT: The patient's head was atraumatic, normocephalic. LUNGS: Diminished, but markedly clearer than they have been. She is making progress there. CARDIOVASCULAR: Regular sinus rhythm. ABDOMEN: Soft, nontender. EXTREMITIES: Without clubbing, cyanosis. There is trace edema. We will give her some additional Lasix for that. Otherwise, continue on antibiotic therapy. Continue with PT, OT and make further evaluation on her as indicated. She has pulled out her IVs. Refuses IVs. We were tapering down on her prednisone and giving all her antibiotics by oral medications. SHAN BALDWIN MD DR: MARY/perry JOB#: [id number] / [id number]
--- NOTE | 2020-09-03 05:25 | NUR ---
Pt pleasant; denies pain, dizziness, shortness of breath. Pt communicates well with translating device. She speaks little Kiswahili and uses it when she can. Pt states her daughter may be ready to take her home on Friday. Pt struggles to get room temperature comfortable. Heater turned off and on twice through the night. Pt slept very little. Will continue to monitor.
[2020-09-03] MEDS: ALBUTEROL SULFATE 8GM INHALER. INH SCH ×5 (06:00→23:21)
[2020-09-03 06:03] LABS: HEMOGLOBIN A1C 8.4 % (4.8-5.6)
[2020-09-03 07:06] VITALS: BP 165/63
[2020-09-03 07:18] LABS: HEMATOCRIT 27.5 % (36.0-47.0); HEMOGLOBIN 9.6 g/dL (12.0-15.5)
[2020-09-03] MEDS ORDERED: DEXAMETHASONE 4 MG TABLET PO SCH (08:00)
[2020-09-03] MEDS: GLIMEPIRIDE 2 MG TABLET PO SCH ×2 (08:57→16:58)
[2020-09-03] MEDS: METOCLOPRAMIDE 5 MG TABLET PO SCH ×4 (08:57→21:31)
[2020-09-03] MEDS: LACTOBACILLUS RHAMNOSUS GG 1 CAPSULE. PO SCH ×2 (08:57→21:31)
[2020-09-03] MEDS: FUROSEMIDE 20 MG TABLET PO SCH (08:58)
[2020-09-03] MEDS: MAGNESIUM OXIDE 400 MG TABLET PO SCH (08:58)
[2020-09-03] MEDS: CEFDINIR 300 MG CAPSULE PO SCH ×2 (08:58→21:32)
[2020-09-03] MEDS: AZITHROMYCIN 250 MG TABLET. PO SCH (08:58)
[2020-09-03] MEDS: amLODIPine BESYLATE 5 MG TABLET PO SCH (08:58)
[2020-09-03] MEDS: LOSARTAN 25 MG TABLET. PO SCH ×2 (08:58→21:32)
[2020-09-03] MEDS: BRIMONIDINE 0.2% OPHTH SOLUTION 5ML BOTTLE. OU SCH ×2 (08:59→21:00)
[2020-09-03] MEDS: TIMOLOL 0.5% OPHTH SOLUTION 5ML BOTTLE. OU SCH ×2 (08:59→21:31)
[2020-09-03] MEDS: INSULIN GLARGINE SYRINGE. SQ SCH ×2 (09:00→21:33)
[2020-09-03] MEDS: METOPROLOL TART IMMED RELEASE 25 MG TABLET. PO SCH ×2 (09:02→21:32)
[2020-09-03] MEDS: MULTIVITAMIN I-VITE TABLET. PO SCH (09:03)
[2020-09-03] MEDS: PREGABALIN 50 MG CAPSULE PO SCH ×2 (09:03→11:59)
[2020-09-03] MEDS: PANTOPRAZOLE 40 MG TABLET. PO SCH (09:03)
[2020-09-03] MEDS: INSULIN LISPRO 300 UNITS/3 ML VIAL. SQ SCH ×3 (09:13→17:03)
[2020-09-03 11:00] VITALS: BP 120/45
[2020-09-03] MEDS: PREGABALIN 75 MG CAPSULE PO SCH ×2 (14:00→21:32)
[2020-09-03 15:24] VITALS: BP 125/46
--- NOTE | 2020-09-03 18:06 | PN ---
DATE: SUBJECTIVE: An 80-year-old female in with COVID-19 pneumonia, acute on top of chronic respiratory failure. The patient's had other multiple medical issues with a tremor secondary related to the Decadron. Overall, she has made excellent progress. She is a type 2 diabetic and we are tapering down on the Decadron as she does seem to be breathing better. Her anemia, actually has been somewhat reversed and she has come up from 8.8 up to 9.6. The patient otherwise is feeling better and through the grocery clerk stocking was able to discuss. She is a twenty[employer]nine palms of [place] and her Turkmen is not very sufficient. I discussed things with her, but through translation she was able to obviously express herself very conveniently. PHYSICAL EXAMINATION: VITAL SIGNS: Blood pressure 165/63, respiratory rate 20, pulse 84 and afebrile. She is on 2 liters at 95%. She is to do a 6-minute walk on her. GENERAL: Otherwise, the patient is alert, spry for her age. LUNGS: Diminished, but basically clear. CARDIOVASCULAR: Regular sinus rhythm. ABDOMEN: Soft, nontender, no rebound or guarding. Positive bowel sounds. EXTREMITIES: No clubbing, cyanosis. Trace edema in the feet. I gave her some Lasix for that. The patient's feet still hurt with her diabetic neuropathy. She pulled out her IVs. We have her on oral medications and close monitoring of her electrolytes. DIAGNOSES: Include COVID-19 pneumonia, acute respiratory failure with hypoxia, anemia secondary to possible gastrointestinal bleed, as I mentioned diabetic neuropathy, edema to the lower extremities, hypokalemia, hyponatremia. The patient has been seen by Cardiology and we will continue to monitor on that. Also, severe protein malnutrition. SHAN BALDWIN MD DR: MARY/perry JOB#: [id number] / [id number]
[2020-09-03 19:15] VITALS: BP 141/52
[2020-09-03] MEDS: ATORVASTATIN CALCIUM 10 MG TABLET. PO SCH (21:32)
[2020-09-03 23:40] VITALS: BP 147/73
[2020-09-04 05:07] VITALS: BP 166/87
[2020-09-04] MEDS: ALBUTEROL SULFATE 8GM INHALER. INH SCH ×2 (06:00→12:10)
[2020-09-04 06:39] LABS: CALCIUM 8.5 mg/dL (8.5-10.1); CREATININE 0.8 mg/dL (0.6-1.0); GFR 68.7; POTASSIUM 3.5 mmol/L (3.5-5.1)
[2020-09-04] MEDS ORDERED: DEXAMETHASONE 4 MG TABLET PO SCH (08:00)
[2020-09-04] MEDS: TIMOLOL 0.5% OPHTH SOLUTION 5ML BOTTLE. OU SCH (08:04)
[2020-09-04] MEDS: BRIMONIDINE 0.2% OPHTH SOLUTION 5ML BOTTLE. OU SCH (08:04)
[2020-09-04] MEDS: amLODIPine BESYLATE 5 MG TABLET PO SCH (08:05)
[2020-09-04] MEDS: PREGABALIN 75 MG CAPSULE PO SCH ×2 (08:05→15:21)
[2020-09-04] MEDS: PANTOPRAZOLE 40 MG TABLET. PO SCH (08:06)
[2020-09-04] MEDS: LACTOBACILLUS RHAMNOSUS GG 1 CAPSULE. PO SCH (08:06)
[2020-09-04] MEDS: METOCLOPRAMIDE 5 MG TABLET PO SCH ×2 (08:06→15:21)
[2020-09-04] MEDS: MAGNESIUM OXIDE 400 MG TABLET PO SCH (08:06)
[2020-09-04] MEDS: ASPIRIN ENTERIC COATED 81 MG TABLET.DR. PO SCH (08:06)
[2020-09-04] MEDS: MULTIVITAMIN I-VITE TABLET. PO SCH (08:06)
[2020-09-04] MEDS: CEFDINIR 300 MG CAPSULE PO SCH (08:06)
[2020-09-04] MEDS: FUROSEMIDE 20 MG TABLET PO SCH (08:06)
[2020-09-04] MEDS: METOPROLOL TART IMMED RELEASE 25 MG TABLET. PO SCH (08:07)
[2020-09-04] MEDS: AZITHROMYCIN 250 MG TABLET. PO SCH (08:07)
[2020-09-04] MEDS: GLIMEPIRIDE 2 MG TABLET PO SCH (08:07)
[2020-09-04] MEDS: LOSARTAN 25 MG TABLET. PO SCH (08:07)
[2020-09-04] MEDS: INSULIN GLARGINE SYRINGE. SQ SCH (08:11)
[2020-09-04] MEDS: INSULIN LISPRO 300 UNITS/3 ML VIAL. SQ SCH ×2 (08:12→12:09)
[2020-09-04] MEDS ORDERED: PRIMIDONE 50 MG TABLET PO SCH (09:00)
[2020-09-04 10:48] VITALS: BP 130/48
[2020-09-04] MEDS ORDERED: ALBU8HFA2 INH (11:05)
[2020-09-04] MEDS ORDERED: INSU100I11 SQ (11:05)
[2020-09-04] MEDS ORDERED: LOSA25TA11 PO (11:05)
[2020-09-04] MEDS ORDERED: INSU100V8 SQ (11:05)
[2020-09-04] MEDS ORDERED: FURO20TA3 PO (11:05)
[2020-09-04] MEDS ORDERED: HYDR-2155 PO (11:05)
[2020-09-04] MEDS ORDERED: DEXA1TAB PO (11:05)
[2020-09-04] MEDS ORDERED: CEFD300C PO (11:05)
[2020-09-04] MEDS ORDERED: LACT1CAP19 PO (11:05)
[2020-09-04] MEDS ORDERED: PRIM50TA24 PO (11:05)
[2020-09-04] MEDS ORDERED: AZIT250T6 PO (11:05)
[2020-09-04] MEDS ORDERED: PREG75CA PO (11:05)
[2020-09-04 15:17] VITALS: BP 131/55
--- NOTE | 2020-09-04 16:54 | NUR ---
ARABELLAG NOTE; DISCHARGE MULTIPLE NEW AND REFILL MEDS TRANSMITTED TO PT'S PHARMACY VERBAL AND WRITTEN DISCHARGE INSTRUCTIONS GIVEN TO PT AND HER DAUGHTER DISCHARGED TO HOME AT 1645 VIA W/C ACCOMP BY DAUGHTER WHO PICKED HER UP
== END 2020-09-04 16:45 | disposition home or self-care (01) | DRG 871 ==
LOC: ER 17:47 → 1 SOUTH 21:28
PROVIDERS: ADMIT Family Medicine; ATTEND Family Medicine
DX: A41.89 Other specified sepsis (principal); U07.1 COVID-19; J12.82 Pneumonia due to coronavirus disease 2019; E43 Unspecified severe protein-calorie malnutrition; J96.21 Acute and chronic respiratory failure with hypoxia; E87.1 Hypo-osmolality and hyponatremia; I50.30 Unspecified diastolic (congestive) heart failure; E87.2 Acidosis; K92.2 Gastrointestinal hemorrhage, unspecified; F41.9 Anxiety disorder, unspecified; M19.90 Unspecified osteoarthritis, unspecified site; K21.9 Gastro-esophageal reflux disease without esophagitis; E78.00 Pure hypercholesterolemia, unspecified; G89.29 Other chronic pain; D64.9 Anemia, unspecified; I11.0 Hypertensive heart disease with heart failure; E83.42 Hypomagnesemia; M54.5 Low back pain; M25.552 Pain in left hip; I16.0 Hypertensive urgency; I48.0 Paroxysmal atrial fibrillation; E78.5 Hyperlipidemia, unspecified; E87.6 Hypokalemia; E11.40 Type 2 diabetes mellitus with diabetic neuropathy, unspecified; E11.65 Type 2 diabetes mellitus with hyperglycemia; T38.0X5A Adverse effect of glucocorticoids and synthetic analogues, initial encounter; R25.1 Tremor, unspecified; Z90.49 Acquired absence of other specified parts of digestive tract; Z90.710 Acquired absence of both cervix and uterus; Z68.23 Body mass index [BMI] 23.0-23.9, adult; Y92.89 Other specified places as the place of occurrence of the external cause; D50.0 Iron deficiency anemia secondary to blood loss (chronic)
CPT/HCPCS: 36415; 71045; 72131; 72192; 80048; 80061; 80076; 80307; 81001; 82274; 82550; 82607; 82947; 83036; 83540; 83550; 83605; 83690; 83735; 83880; 84132; 84443; 84484; 85007; 85014; 85018; 85025; 85379; 85610; 85730; 87040; 93005; 96365; 96366; 96368; 96372; 96375; J0696; J1100; J1815; J1940; J1956; J2270; J2543; J3475; J3490; J7120; J8540; P9612; 99285-25; J7030

== ENCOUNTER 2021-01-17 11:35 | Inpatient (IN) | payer OTHER ==
[~2021-01-17] VITALS: Ht 152.4 cm; Wt 56.0 kg
[~2021-01-17 11:35] MED LIST changes: +ALBU8HFA2 INH; +ALEN70TA71 PO; +AZIT250T6 PO; +CARV6.2541 PO; +CEFD300C PO; +DEXA1TAB PO; +DULA0.75 SQ; +FURO20TA3 PO; +HYDR-2155 PO; +INSU100I11 SQ; +INSU100V8 SQ; +INSU200I SQ; +LACT1CAP19 PO; +LOSA25TA11 PO; +MAGN400C PO; +METF-658 PO; +MULT-245 PO; +PREG75CA PO; +PRIM50TA24 PO; +TRAM50TA PO
--- NOTE | 2021-01-17 12:00 | PHYS DOC ---
Past History Past Medical History: Anxiety, Arthritis, Diabetes, GERD, High Cholesterol, Heart Disease, Hypertension Past Surgical History: Cholecystectomy, Hysterectomy, Other Additional Past Surgical Histo: Back Smoking: Non-smoker Alcohol Use: None Drug Use: None Adult General Chief Complaint Chief Complaint: DIZZY/LIGHT HEADED HPI HPI Patient is a 80-year-old female who presents with daughter for dizziness. Onset was earlier this morning, patient was at rest eating breakfast when she voiced symptoms of dizziness and lightheadedness to daughter whom she lives with. Daughter immediately checked patient's blood pressure and found her to be hypotensive at 80/40. Patient was immediately transported to our ER for evaluation. No falls, no blood thinner use, no recent sick contacts, febrile illness or other concerning inciting event, exposure or ingestion. Patient has had no recent medication changes from primary care physician. She is an insulin-dependent diabetic on 81 mg aspirin daily, no prior history of OK or CVA. No tobacco, alcohol or illicit drug use. Review of Systems Review of Systems Fourteen body systems of review of systems have been reviewed. See HPI for pertinent positives and negative responses, other morrissey all other systems are negative, non-pertinent or non-contributory Allergies Allergies Allergies Coded Allergies Type Severity Reaction Last Updated Verified lisinopril Adverse Reaction Intermediate Swelling 08/28/20 Yes Physical Exam Physical Exam Constitutional: Well developed, well nourished, no acute distress, non-toxic appearance. HENT: Normocephalic, atraumatic, bilateral external ears normal, oropharynx moist, no oral exudates, nose normal. Eyes: PERRLA, EOMI, conjunctiva normal, no discharge. Neck: Normal range of motion, no tenderness, supple, no stridor. Cardiovascular: Heart rate regular, sinus rhythm, no murmurs rubs or gallops Lungs & Thorax: Bilateral breath sounds clear to auscultation Abdomen: Bowel sounds normal, soft, no tenderness, no masses, no pulsatile masses. Nonsurgical abdomen, no peritoneal signs Skin: Warm, dry, no erythema, no rash. Back: No tenderness, no CVA tenderness. Extremities: No tenderness, no cyanosis, no clubbing, ROM intact, no edema. Neurologic: Alert and oriented X 3, grossly normal motor & sensory function, no focal deficits noted. Psychologic: Affect normal, judgement normal, mood normal. Current Patient Data Vital Signs Vital Signs Date Time Temp Pulse Resp B/P (MAP) Pulse Ox O2 Delivery O2 Flow Rate FiO2 01/17/21 11:38 97.8 92 16 105/45 (65) 97 Room Air Lab Results Laboratory Tests Test 01/17/21 12:03 White Blood Count 9.8 x10^3/uL Red Blood Count 3.61 x10^6/uL Hemoglobin 11.1 g/dL Hematocrit 32.8 % Mean Corpuscular Volume 91 fL Mean Corpuscular Hemoglobin 31 pg Mean Corpuscular Hemoglobin Concent 34 g/dL Red Cell Distribution Width 14.6 % Platelet Count 299 x10^3/uL Neutrophils (%) (Auto) 72 % Lymphocytes (%) (Auto) 21 % Monocytes (%) (Auto) 7 % Eosinophils (%) (Auto) 0 % Basophils (%) (Auto) 1 % Neutrophils # (Auto) 7.0 x10^3uL Lymphocytes # (Auto) 2.0 x10^3/uL Monocytes # (Auto) 0.7 x10^3/uL Eosinophils # (Auto) 0.0 x10^3/uL Basophils # (Auto) 0.0 x10^3/uL Sodium Level 130 mmol/L Potassium Level 4.1 mmol/L Chloride Level 96 mmol/L Carbon Dioxide Level 21 mmol/L Anion Gap 13 Blood Urea Nitrogen 39 mg/dL Creatinine 1.5 mg/dL Estimated GFR (Cockcroft-Gault) 33.2 BUN/Creatinine Ratio 26 Glucose Level 436 mg/dL Lactic Acid Level 3.9 mmol/L Calcium Level 9.1 mg/dL Total Bilirubin 0.5 mg/dL Aspartate Amino Transf (AST/SGOT) 21 U/L Alanine Aminotransferase (ALT/SGPT) 18 U/L Alkaline Phosphatase 64 U/L Troponin I Quantitative < 0.017 ng/mL Total Protein 7.2 g/dL Albumin 3.0 g/dL Albumin/Globulin Ratio 0.7 Acetone Level Neg Current Medications Medications (Trade) Dose Ordered Sig/Maylin Route PRN Reason Start Time Stop Time Status Last Admin Dose Admin Sodium Chloride 1,000 ml @ 1,000 mls/hr 1X ONCE IV 01/17/21 12:15 01/17/21 13:14 DC 01/17/21 12:20 EKG EKG EKG ordered and interpreted by myself at 1148 hrs. as sinus rhythm at 90 bpm, unremarkable intervals, no axis deviation, no acute ischemic findings, no STEMI Radiology/Procedures Radiology/Procedures EXAM: Head CT without contrast. HISTORY: Dizziness. TECHNIQUE: Computed tomographic images of the head were obtained without contrast. *One or more of the following individualized dose reduction techniques were utilized for this examination: 1. Automated exposure control. 2. Adjustment of the mA and/or kV according to patient size. 3. Use of iterative reconstruction technique. COMPARISON: 12/31/2016. FINDINGS: There is no acute or subacute extra-axial or intraparenchymal hemorrhage. There is no mass effect or midline shift. There is no hydrocephalus. There are areas of decreased attenuation within the cerebral white matter, nonspecific and likely related to chronic small vessel disease. There is cerebral volume loss. There are postoperative changes involving the left lobe. There is evidence of bilateral lens surgery. There is orbital band keratopathy. The mastoid air cells and visualized paranasal sinuses are clear. There is no suspicious calvarial lesion. IMPRESSION: 1. No acute intracranial finding. Note is made that MRI is more sensitive for acute infarction. 2. Bilateral cerebral white matter changes, likely due to chronic small vessel disease. Electronically signed by: Adeola Bush MD (01/17/2021 12:42 PM) [id number] ////////////////////////// EXAM: Chest, single view. HISTORY: Dizziness. COMPARISON: 08/31/2020 FINDINGS: A frontal view of the chest is obtained. There is no infiltrate, pleural effusion or pneumothorax. The heart is normal in size. IMPRESSION: No acute pulmonary finding. Electronically signed by: Adeola Bush MD (01/17/2021 12:43 PM) [id number] Heart Score C/O Chest Pain: No HEART Score for Chest Pain: HEART Score for Chest Pain Response (Comments) Value History Slighlty/Non-Suspicious 0 ECG Normal 0 Age > 65 2 Risk Factors >3 Risk Factors or Hx CAD 2 Troponin < Normal Limit 0 Total 4 Risk Factors: Risk Factors: DM, Current or recent (<one month) smoker, HTN, HLP, family history of CAD, obesity. Risk Scores: Risk Factors: DM, Current or recent (<one month) smoker, HTN, HLP, family history of CAD, obesity. Course & Med Decision Making Course & Med Decision Making Hypotensive otherwise hemodynamically stable with HPI and physical exam nonconcerning for any emergent or surgical issues IV access obtained. 1 L IV normal saline administered with improvement in blood pressure Comprehensive ER work-up obtained. No DKA but patient hyperglycemic with findings consistent with dehydration likely secondary to elevated hyperglycemic state for past 72 hours per daughter. Daughter reports averaging 300-400s past 72 hours Despite ER intervention, patient still feeling dizzy with position changes and weak overall. She has high risk for return home. Daughter has concerned that she cannot care for her in current state of health and agrees for need of admission I contacted patient's primary care provider who will also serve as hospitalist, he agreed need for admission and accepted patient under his care I updated patient and daughter at bedside on proposed plan of care that included hospital admission for continued IV fluid rehydration as indicated, continued glycemic control, and improvement of electrolyte abnormalities. They were amenable. All questions and concerns addressed prior to admission Critical Care Time This patient required critical care. Due to the fact that the patient required a significant amount of one on one physician - patient contact time, ordering and review of studies, arranging urgent treatment with development of a management plan, evaluation of patients response to treatment with frequent reassessments, and discussions with other providers this patient required 35 minutes of critical care time. Critical care time was indicated due to the inherent i nstability and/or potential for instability in this patient. The critical care time that is allocated to this patient is above and beyond any time spent on any other billable procedures performed on this patient. Dragon Disclaimer Dragon Disclaimer This electronic medical record was generated, in whole or in part, using a voice recognition dictation system. Departure Departure: Impression: Primary Impression: Hyperglycemia due to type 2 diabetes mellitus Additional Impressions: Dizziness SMILEY (acute kidney injury) Electrolyte abnormality Disposition: ADMITTED INPATIENT Admitting Physician: Shan Ba Condition: STABLE Referrals: SHAN BA MD (PCP) Problem Qualifiers [email or web address] January 17, 2021 12:00
[2021-01-17] MEDS ORDERED: IV NORMAL SALINE 1,000ML 1,000 ML IV ONE (12:15)
[2021-01-17 12:29] LABS: BASO % 1 % (0-3); EOS % 0 % (0-3); HEMATOCRIT 32.8 % (36.0-47.0); HEMOGLOBIN 11.1 g/dL (12.0-15.5); LYMPH % 21 % (24-48); MEAN CORPUSCULAR HEMOGLOBIN 31 pg (25-35); MEAN CORPUSCULAR HGB CONC 34 g/dL (31-37); MEAN CORPUSCULAR VOLUME 91 fL (79-100); MONO # 0.7 x10^3/uL (0.0-1.1); MONO % 7 % (0-9); NEUT % 72 % (31-73); PLATELET COUNT 299 x10^3/uL (140-400); RED BLOOD COUNT 3.61 x10^6/uL (3.50-5.40); RED CELL DISTRIBUTION WIDTH 14.6 % (11.5-14.5); WHITE BLOOD COUNT 9.8 x10^3/uL (4.0-11.0)
--- NOTE | 2021-01-17 12:35 | EKG ---
[address] [address] Test Date: 2021-01-17 Test Time: 11:48:02 Pat Name: NIDIA MCCOY Department: Room: Gender: F [employer]: WADE : 1940 Requested By: KIRK GRIFFIN Order Number: [id number] Reading MD: Measurements Intervals [place] Rate: 90 P: 33 NV: 180 QRS: 38 QRSD: 96 T: 66 QT: 368 QTc: 454 Interpretive Statements SINUS RHYTHM OTHERWISE NORMAL ECG RI6.02 No previous ECG available for comparison
[2021-01-17 12:37] LABS: CALCIUM 9.1 mg/dL (8.5-10.1); CREATININE 1.5 mg/dL (0.6-1.0); GFR 33.2; POTASSIUM 4.1 mmol/L (3.5-5.1)
[2021-01-17 12:39] LABS: ALBUMIN/GLOBULIN RATIO 0.7 (1.0-1.7); TOTAL BILIRUBIN 0.5 mg/dL (0.2-1.0); TOTAL PROTEIN 7.2 g/dL (6.4-8.2)
--- NOTE | 2021-01-17 12:45 | RAD ---
EXAM: Head CT without contrast. HISTORY: Dizziness. TECHNIQUE: Computed tomographic images of the head were obtained without contrast. *One or more of the following individualized dose reduction techniques were utilized for this examina tion: 1. Automated exposure control. 2. Adjustment of the mA and/or kV according to patient size. 3. Use of iterative reconstruction technique. COMPARISON: 12/31/2016. FINDINGS: There is no acute or subacute extra-axial or intraparenchymal hemorrhage. There is no mass effect or midline shift. There is no hydrocephalus. There are areas of decreased attenuation within the cerebral white matter, nonspecific and likely rel ated to chronic small vessel disease. There is cerebral volume loss. There are postoperative changes involving the left lobe. There is evidence of bilateral lens surgery. There is orbital band keratopathy. The mastoid air cells and visualized paranasal sinuses are clear. There is no suspicious calvarial lesion. IMPRESSION: 1. No acute intracranial finding. Note is made that MRI is more sensitive for acute infarction. 2. Bilateral cerebral white matter changes, likely due to chronic small vessel disease. Electronically signed by: Adeola Bush MD (01/17/2021 12:42 PM) [id number]
--- NOTE | 2021-01-17 12:45 | RAD ---
EXAM: Chest, single view. HISTORY: Dizziness. COMPARISON: 08/31/2020 FINDINGS: A frontal view of the chest is obtained. There is no infiltrate, pleural effusion or pneumo thorax. The heart is normal in size. IMPRESSION: No acute pulmonary finding. Electronically signed by: Adeola Bush MD (01/17/2021 12:43 PM) [id number]
[2021-01-17] MEDS ORDERED: ACETAMINOPHEN 325 MG TABLET PO PRN (13:30)
--- NOTE | 2021-01-17 14:00 | NUR ---
Pt admitted to room 115 from ED. Daughter at bedside, answered admission questions. Spoke with Dr Ba, orders entered.
[2021-01-17] MEDS ORDERED: ASCO500C PO (14:42)
[2021-01-17] MEDS ORDERED: FLUT16SP21 NS (14:42)
[2021-01-17] MEDS ORDERED: CARV6.2541 PO (14:42)
[2021-01-17] MEDS ORDERED: ALEN70TA71 PO (14:42)
[2021-01-17] MEDS ORDERED: SODI3.5O3 OS (14:42)
[2021-01-17] MEDS ORDERED: BRIM5DRO2 OU (14:42)
[2021-01-17] MEDS ORDERED: OMEG1CAP43 PO (14:42)
[2021-01-17] MEDS ORDERED: BIOT5000 PO (14:42)
[2021-01-17] MEDS ORDERED: ESOM40CA PO (14:42)
[2021-01-17] MEDS ORDERED: CYAN10002 IM (14:42)
[2021-01-17] MEDS ORDERED: FERR325T14 PO (14:42)
[2021-01-17] MEDS ORDERED: CHLO25TA9 PO (14:42)
[2021-01-17] MEDS ORDERED: ZINC50TA39 PO (14:42)
[2021-01-17 15:21] VITALS: BP 106/63
[2021-01-17] MEDS ORDERED: DEXTROSE 50% 25 GM / 50ML DISP.SYRIN. IV PRN (16:15)
[2021-01-17] MEDS ORDERED: INSULIN LISPRO 300 UNITS/3 ML VIAL. SQ SCH ×2 (17:00)
[2021-01-17] MEDS: CARVEDILOL 6.25 MG TABLET PO SCH (17:00)
[2021-01-17] MEDS: INSULIN LISPRO 300 UNITS/3 ML VIAL. SQ SCH (17:24)
[2021-01-17] MEDS: IV NORMAL SALINE 1,000ML 1,000 ML IV SCH (17:26)
[2021-01-17 18:47] VITALS: BP 120/64
[2021-01-17] MEDS: INSULIN GLARGINE SYRINGE. SQ SCH (21:33)
[2021-01-17] MEDS: SODIUM CHLORIDE 5% OPHTH SOLUTION 15ML BOTTLE. OS SCH (21:33)
[2021-01-17] MEDS: TIMOLOL 0.5% OPHTH SOLUTION 5ML BOTTLE. OU SCH (21:33)
[2021-01-17] MEDS: METOCLOPRAMIDE 5 MG TABLET PO SCH (21:33)
[2021-01-17] MEDS: BRIMONIDINE 0.2% OPHTH SOLUTION 5ML BOTTLE. OU SCH (21:33)
[2021-01-17] MEDS: ATORVASTATIN CALCIUM 10 MG TABLET. PO SCH (21:33)
[2021-01-17] MEDS: GLIMEPIRIDE 2 MG TABLET PO SCH (21:33)
[2021-01-18 00:05] VITALS: BP 113/64
[2021-01-18] MEDS: IV NORMAL SALINE 1,000ML 1,000 ML IV SCH ×2 (01:31→05:45)
[2021-01-18 01:34] LABS: BILIRUBIN,URINE NEG (NEG); CLARITY,URINE CLEAR; COLOR,URINE YELLOW; GLUCOSE,URINE NEG (NEG); NITRITE,URINE NEG (NEG); UROBILINOGEN,URINE 0.2 mg/dL (0.2 mg/dL)
[2021-01-18 01:37] LABS: BACTERIA,URINE FEW /HPF (0-FEW); SQUAMOUS EPITHELIAL CELL,UR OCC /LPF
[2021-01-18 05:57] LABS: BASO % 1 % (0-3); EOS # 0.1 x10^3/uL (0.0-0.7); EOS % 2 % (0-3); HEMATOCRIT 27.2 % (36.0-47.0); HEMOGLOBIN 9.1 g/dL (12.0-15.5); LYMPH # 2.8 x10^3/uL (1.0-4.8); LYMPH % 49 % (24-48); MEAN CORPUSCULAR HEMOGLOBIN 30 pg (25-35); MEAN CORPUSCULAR HGB CONC 33 g/dL (31-37); MEAN CORPUSCULAR VOLUME 89 fL (79-100); MONO # 0.5 x10^3/uL (0.0-1.1); MONO % 9 % (0-9); NEUT # 2.3 x10^3uL (1.8-7.7); NEUT % 41 % (31-73); PLATELET COUNT 257 x10^3/uL (140-400); RED BLOOD COUNT 3.04 x10^6/uL (3.50-5.40); RED CELL DISTRIBUTION WIDTH 14.4 % (11.5-14.5); WHITE BLOOD COUNT 5.8 x10^3/uL (4.0-11.0)
[2021-01-18 06:05] VITALS: BP 117/50
[2021-01-18 06:08] LABS: CALCIUM 7.5 mg/dL (8.5-10.1); GFR 53.1; POTASSIUM 3.6 mmol/L (3.5-5.1)
[2021-01-18] MEDS: CARVEDILOL 6.25 MG TABLET PO SCH (08:00)
[2021-01-18] MEDS: PANTOPRAZOLE 40 MG TABLET. PO SCH (08:14)
[2021-01-18] MEDS: MULTIVITAMIN I-VITE TABLET. PO SCH (08:14)
[2021-01-18] MEDS: ASPIRIN ENTERIC COATED 81 MG TABLET.DR. PO SCH (08:14)
[2021-01-18] MEDS: GLIMEPIRIDE 2 MG TABLET PO SCH ×2 (08:14→21:21)
[2021-01-18] MEDS: FERROUS SULFATE 325 MG TABLET. PO SCH (08:14)
[2021-01-18] MEDS: FLUTICASONE 50MCG/NASAL SPRAY 16GM BOTTLE. NS SCH (08:14)
[2021-01-18] MEDS: SODIUM CHLORIDE 5% OPHTH SOLUTION 15ML BOTTLE. OS SCH ×3 (08:15→21:22)
[2021-01-18] MEDS: BRIMONIDINE 0.2% OPHTH SOLUTION 5ML BOTTLE. OU SCH ×2 (08:15→21:21)
[2021-01-18] MEDS: MAGNESIUM OXIDE 400 MG TABLET PO SCH (08:15)
[2021-01-18] MEDS: PRIMIDONE 50 MG TABLET PO SCH (08:15)
[2021-01-18] MEDS: TIMOLOL 0.5% OPHTH SOLUTION 5ML BOTTLE. OU SCH ×2 (08:15→21:21)
[2021-01-18] MEDS: METOCLOPRAMIDE 5 MG TABLET PO SCH ×3 (08:17→21:21)
[2021-01-18] MEDS: INSULIN LISPRO 300 UNITS/3 ML VIAL. SQ SCH ×3 (08:23→17:20)
[2021-01-18] MEDS: INSULIN GLARGINE SYRINGE. SQ SCH ×2 (08:38→21:21)
--- NOTE | 2021-01-18 10:31 | NUR ---
Discharge instructions reviewed with pt. All questions answered. Pt discharge instructions, education materials, rxs and belongings all sent with pt. piv discontinued earlier. Addendum: 01/18/21 at 1509 by TESSY VILLA RN incorrect pt
[2021-01-18] MEDS ORDERED: DOCUSATE SODIUM 100 MG CAPSULE PO PRN (13:00)
[2021-01-18] MEDS: ENOXAPARIN 40 MG/0.4 ML SYRINGE. SQ SCH (14:00)
[2021-01-18 16:00] VITALS: BP 159/70
[2021-01-18] MEDS: CALCIUM CARB/VIT D3 500/200 TABLET PO SCH (16:31)
[2021-01-18] MEDS: CARVEDILOL 3.125 MG TABLET PO SCH (16:31)
--- NOTE | 2021-01-18 19:12 | HP ---
ADMIT DATE: 01/17/2021 HISTORY OF PRESENT ILLNESS: This is an 80-year-old female who came in through the Emergency Room. The patient noted that she felt lightheaded and dizzy. Blood pressure was 80/40 or less. She was transported to the ER by EMS. The patient also had extremely elevated blood sugars that were over 400; although, no acetone or ketones were noted per se. Cardiac enzymes were negative. The patient was markedly dehydrated and hypotensive, and the patient was admitted for these constellation of problems as described above. PAST MEDICAL AND SURGICAL HISTORY: Includes she had cataracts, glaucoma, colitis, cholecystectomy, GERD, hysterectomy, orthopedic surgery, plates in her back, back surgery, diabetes. IMMUNIZATION: Influenza, pneumococcal vaccinations and her SARS vaccinations are up-to-date. FAMILY HISTORY: Unremarkable. ALLERGIES: LISINOPRIL. SOCIAL HISTORY: No smoking, alcohol or drug use. She is from [place], speaks fluent Chinese and is a full code. REVIEW OF SYSTEMS: The patient denies any headaches, visual changes, blurred vision, double vision. Does feel shortness of breath as well as weakness, lightheadedness. No chest pain, no abdominal pain, does have some nausea, but no vomiting. Denies any problem with her bowels or bladder. Neurologically, the patient was baseline for that. PHYSICAL EXAMINATION: GENERAL: This is a very pleasant female. The daughter translated extensively. VITAL SIGNS: Blood pressure is noted 78/40, respiratory rate 20, pulse in the 90s, afebrile. HEENT: The patient's head was atraumatic, normocephalic. Eyes: PERRLA without jaundice. The mouth and throat were normal. NECK: Supple without JVD, carotid bruit or thyromegaly. LUNGS: Diminished, poor movement of air. CARDIOVASCULAR: Regular sinus rhythm, S1, S2. ABDOMEN: Soft, nontender. EXTREMITIES: No clubbing, cyanosis, nor edema. NEUROLOGIC: The patient was alert and oriented x3. LABORATORY DATA: Hemoglobin 9.1 and 27. White count was normal. As noted, the sugars were brought down from the 400 down in the 200s. BUN and creatinine 29 and 1. Sodium and potassium 135/3.6. The patient's albumin slightly low at 3. IMPRESSION: Hypotension, acute renal failure, type 2 diabetes, poorly controlled. The patient will be placed on IV fluids, given bolus. Continue to monitor her sugars and make further evaluation on her blood pressure and sugars as indicated. MARY/KATTY DR: MARY/perry TID: [id number]
[2021-01-18 20:25] VITALS: BP 163/73
[2021-01-18] MEDS: ZOLPIDEM 5 MG TABLET. PO SCH (21:21)
[2021-01-18] MEDS: ATORVASTATIN CALCIUM 10 MG TABLET. PO SCH (21:21)
[2021-01-18] MEDS ORDERED: ACET325T9 PO (22:03)
[2021-01-18] MEDS ORDERED: ACETAMINOPHEN 325 MG TABLET PO PRN (22:15)
[2021-01-18] MEDS ORDERED: TEMAZEPAM 15 MG CAPSULE PO PRN (22:15)
[2021-01-19 06:08] LABS: HEMATOCRIT 27.9 % (36.0-47.0); HEMOGLOBIN 9.6 g/dL (12.0-15.5)
[2021-01-19 06:43] VITALS: BP 151/71
[2021-01-19] MEDS: INSULIN LISPRO 300 UNITS/3 ML VIAL. SQ SCH ×3 (07:48→17:00)
[2021-01-19] MEDS: TIMOLOL 0.5% OPHTH SOLUTION 5ML BOTTLE. OU SCH ×2 (08:26→21:03)
[2021-01-19] MEDS: BRIMONIDINE 0.2% OPHTH SOLUTION 5ML BOTTLE. OU SCH ×2 (08:26→21:03)
[2021-01-19] MEDS: SODIUM CHLORIDE 5% OPHTH SOLUTION 15ML BOTTLE. OS SCH ×3 (08:26→21:03)
[2021-01-19] MEDS: FLUTICASONE 50MCG/NASAL SPRAY 16GM BOTTLE. NS SCH (08:27)
[2021-01-19] MEDS: CALCIUM CARB/VIT D3 500/200 TABLET PO SCH ×2 (08:27→17:17)
[2021-01-19] MEDS: ASPIRIN ENTERIC COATED 81 MG TABLET.DR. PO SCH (08:27)
[2021-01-19] MEDS: METOCLOPRAMIDE 5 MG TABLET PO SCH ×3 (08:27→21:02)
[2021-01-19] MEDS: MULTIVITAMIN I-VITE TABLET. PO SCH (08:28)
[2021-01-19] MEDS: PRIMIDONE 50 MG TABLET PO SCH (08:28)
[2021-01-19] MEDS: DOCUSATE SODIUM 100 MG CAPSULE PO SCH (08:28)
[2021-01-19] MEDS: GLIMEPIRIDE 2 MG TABLET PO SCH ×2 (08:28→21:03)
[2021-01-19] MEDS: CARVEDILOL 3.125 MG TABLET PO SCH ×2 (08:28→17:18)
[2021-01-19] MEDS: PANTOPRAZOLE 40 MG TABLET. PO SCH (08:28)
[2021-01-19] MEDS: FERROUS SULFATE 325 MG TABLET. PO SCH (08:29)
[2021-01-19] MEDS: MAGNESIUM OXIDE 400 MG TABLET PO SCH (08:30)
[2021-01-19] MEDS: INSULIN GLARGINE SYRINGE. SQ SCH ×2 (08:30→23:36)
[2021-01-19 11:35] VITALS: BP 150/70
[2021-01-19] MEDS: ENOXAPARIN 40 MG/0.4 ML SYRINGE. SQ SCH (14:09)
[2021-01-19 15:31] VITALS: BP 195/73
--- NOTE | 2021-01-19 18:05 | NUR ---
SHIFT NOTE Pt resting comfortably throughout day. Pt taking in fluids well throughout day and blood sugars well controlled. Pt states she is feeling better and hopefully going home tomorrow. Will continue to monitor. CC, RN
[2021-01-19] MEDS ORDERED: CARVEDILOL 3.125 MG TABLET PO SCH (18:15)
[2021-01-19] MEDS: CARVEDILOL 12.5 MG TABLET PO SCH (18:30)
[2021-01-19 19:34] VITALS: BP 198/82
[2021-01-19] MEDS: ATORVASTATIN CALCIUM 10 MG TABLET. PO SCH (21:02)
[2021-01-19] MEDS: ZOLPIDEM 5 MG TABLET. PO SCH (21:02)
[2021-01-19 23:24] VITALS: BP 121/64
--- NOTE | 2021-01-20 01:55 | PN ---
SUBJECTIVE: An 80-year-old female came in with marked dehydration, hypotension and severe hyperglycemia. The patient seems to be doing a little bit better presently. OBJECTIVE: VITAL SIGNS: We have gotten her blood pressure up to 150/70, respiratory rate 18, pulse 78, afebrile. GENERAL: The patient is alert and oriented. LUNGS: Diminished throughout, but basically clear. CARDIOVASCULAR: Regular sinus rhythm. ABDOMEN: Soft, nontender. EXTREMITIES: No clubbing, cyanosis or edema. NEUROLOGIC: Intact. LABORATORY DATA: The patient's urine showed no growth. As noted, sugars are down to 140s. We will continue to monitor her on that and continue on monitoring her vital signs as well as her blood sugars and make adjustments accordingly. She is now into hypertensive urgency. IMPRESSION: Hypotensive, hypertensive urgency, severe hyperglycemia, hypotension with near syncope. JASBIR DR: Gigi TID: [id number]
--- NOTE | 2021-01-20 04:34 | NUR ---
Nursing note: Pt rested comfortably through shift, BP elevated at beginning of shift but decreased at 2300 VS. Other VSS, will continue to monitor.
[2021-01-20 05:47] VITALS: BP 99/58
[2021-01-20] MEDS: CARVEDILOL 12.5 MG TABLET PO SCH (08:00)
[2021-01-20] MEDS: SODIUM CHLORIDE 5% OPHTH SOLUTION 15ML BOTTLE. OS SCH (08:38)
[2021-01-20] MEDS: FLUTICASONE 50MCG/NASAL SPRAY 16GM BOTTLE. NS SCH (08:38)
[2021-01-20] MEDS: BRIMONIDINE 0.2% OPHTH SOLUTION 5ML BOTTLE. OU SCH (08:38)
[2021-01-20] MEDS: TIMOLOL 0.5% OPHTH SOLUTION 5ML BOTTLE. OU SCH (08:38)
[2021-01-20] MEDS: PANTOPRAZOLE 40 MG TABLET. PO SCH (08:39)
[2021-01-20] MEDS: MULTIVITAMIN I-VITE TABLET. PO SCH (08:39)
[2021-01-20] MEDS: CALCIUM CARB/VIT D3 500/200 TABLET PO SCH (08:39)
[2021-01-20] MEDS: ASPIRIN ENTERIC COATED 81 MG TABLET.DR. PO SCH (08:39)
[2021-01-20] MEDS: FERROUS SULFATE 325 MG TABLET. PO SCH (08:39)
[2021-01-20] MEDS: METOCLOPRAMIDE 5 MG TABLET PO SCH (08:39)
[2021-01-20] MEDS: PRIMIDONE 50 MG TABLET PO SCH (08:39)
[2021-01-20] MEDS: GLIMEPIRIDE 2 MG TABLET PO SCH (08:39)
[2021-01-20] MEDS: DOCUSATE SODIUM 100 MG CAPSULE PO SCH (08:39)
[2021-01-20] MEDS: INSULIN LISPRO 300 UNITS/3 ML VIAL. SQ SCH (08:42)
[2021-01-20] MEDS: INSULIN GLARGINE SYRINGE. SQ SCH (08:43)
[2021-01-20] MEDS: MAGNESIUM OXIDE 400 MG TABLET PO SCH (08:44)
[2021-01-20 09:00] VITALS: BP 99/58
[2021-01-20] MEDS ORDERED: TIMO5DRO5 OU (09:43)
[2021-01-20] MEDS ORDERED: TEMA15CA PO (09:43)
--- NOTE | 2021-01-20 11:38 | NUR ---
DISCHARGE Pt discharged today by Dr. Ba. Pt and daughter verbalized understanding of discharge paperwork and hard copy prescriptions. All questions addressed. Pt WC to entrance of hospital escorted by [employer], and daughter. VSS and GCS 15 upon discharge. CC, RN
[2021-01-24] MEDS ORDERED: NON FORMULARY ITEM (Dulaglutide (Trulicity) 0.75 MG) SQ SCH (09:00)
[2021-02-07] MEDS ORDERED: CYANOCOBALAMIN (VITAMIN B-12) 1,000 MCG/ML VIAL. IM SCH (09:00)
== END 2021-01-20 11:40 | disposition home or self-care (01) | DRG 73 ==
LOC: ER 11:35 → 1 SOUTH 13:16
PROVIDERS: ADMIT Family Medicine; ATTEND Family Medicine
DX: G90.8 Other disorders of autonomic nervous system (principal); N17.0 Acute kidney failure with tubular necrosis; E86.0 Dehydration; E11.65 Type 2 diabetes mellitus with hyperglycemia; I95.9 Hypotension, unspecified; I16.0 Hypertensive urgency; E11.51 Type 2 diabetes mellitus with diabetic peripheral angiopathy without gangrene; E78.00 Pure hypercholesterolemia, unspecified; I10 Essential (primary) hypertension; Z79.4 Long term (current) use of insulin; Z79.82 Long term (current) use of aspirin; Z90.710 Acquired absence of both cervix and uterus; F41.9 Anxiety disorder, unspecified; K21.9 Gastro-esophageal reflux disease without esophagitis; M19.90 Unspecified osteoarthritis, unspecified site; Z88.8 Allergy status to other drugs, medicaments and biological substances; Z90.49 Acquired absence of other specified parts of digestive tract
CPT/HCPCS: 36415; 70450; 71045; 80048; 80053; 81001; 82010; 82947; 83540; 83550; 83605; 83735; 84484; 85014; 85018; 85025; 87086; 93005; 96360; J1650; J1815; 99291-25; J7030